=== PATIENT | female | born 1985 | race American Indian/Alaskan Native ===

== ENCOUNTER 2017-06-06 12:56 | Emergency (ER) | payer SELFPAY ==
[2017-06-06 14:39] LABS: Bacteria,Urine 1+ /HPF (Negative); Bilirubin,Urine NEG (Negative); Blood,Urine MOD (Negative); Ketones,Urine NEG (Negative); Leukocyte Esterase,Urine NEG (Negative); Mucus,Urine 2+ /HPF; Nitrite,Urine NEG (Negative); Protein,Urine <15 mg/dL mg/dL (Negative)
[2017-06-06 15:03] LABS: Hematocrit 36.2 % (30.3-42.9); Hemoglobin 11.6 gm/dl (10.1-14.3); Mean Corpuscular HGB Conc 32 % (30-34); Mean Corpuscular Hemoglobin 29 pg (28-32); Mean Corpuscular Volume 92 fl (79-97); Platelet Count 255 K/mm3 (140-440); Red Blood Count 3.93 M/mm3 (3.65-5.03); Red Cell Distribution Width 14.1 % (13.2-15.2); White Blood Count 10.2 K/mm3 (4.5-11.0)
[2017-06-06 15:17] LABS: Anion Gap 15 mmol/L; BUN/Creatinine Ratio 16.66; Blood Urea Nitrogen 5 mg/dL (7-17); Calcium 8.8 mg/dL (8.4-10.2); Carbon Dioxide 25 mmol/L (22-30); Chloride 102.9 mmol/L (98-107); Glucose 70 mg/dL (65-100); Potassium 4.1 mmol/L (3.6-5.0); Sodium 139 mmol/L (137-145)
--- NOTE | 2017-06-06 17:34 | Ultrasound Report ---
FINAL REPORT PROCEDURE: US OB \T\lt; = 14 WEEKS FETUS TECHNIQUE: Real-time transabdominal sonography of the uterus, placenta, amniotic fluid, adnexa, and fetus was performed with image documentation. Measurements were obtained to determine age/size. M-mode Doppler was used to document heartbeat. CPT 33787 HISTORY: vaginal bleed with COMPARISON: Transvaginal pelvic ultrasound also performed today. FINDINGS: This report was generated using images from both the transabdominal and transvaginal pelvic ultrasound both of which were performed today. A gestational sac is seen located in the endometrial canal. A pole is visualized measuring 3.2 millimeters corresponding to an age is 6 weeks 0 days. heartbeat and yolk sac are not visualized. No evidence of subchorionic hemorrhage. Shape of the gestational sac appears normal. Mildly hypoechoic mural masses consistent with fibroids are seen in the uterus located posteriorly, 1 near the fundus 4.0 x 3.4 x 4.0 centimeter. 2nd fibroid noted posteriorly in the midportion of the uterus measures 7 millimeters greatest diameter and a 3rd located in the lower uterine segment measures 1.4 x 1.4 x 2.0 centimeter. No free fluid is seen in the cul-de-sac. Right ovary is unremarkable measuring 2.9 x 1.5 x 2.4 centimeters. The left ovary is only visualized transabdominally measuring 3.3 x 1.9 x 1.9 centimeter. Hypoechoic nodules seen in the left ovary with internal echoes measuring 2.1 x 1.7 centimeters suggesting a corpus luteum cyst of . Mild internal echoes are present suggesting hemorrhage. IMPRESSION: Gestational sac visualized containing a pole. The yolk sac is not visualized. Heartbeat is not visualized at this time. The estimated age by crown-rump length measurement is [address] the EDC at 01/30/2018 plus or minus 0.5 weeks. It may be too early to visualize the heartbeat. Consider follow-up ultrasound in 7 days to evaluate for living intrauterine . Intrauterine demise cannot be excluded. I do not see evidence of a subchorionic hemorrhage on today's study per Small complex cystic structure visualized in the left ovary suggesting hemorrhagic corpus luteum cyst of . Uterine fibroids visualized as described above
--- NOTE | 2017-06-06 17:35 | Ultrasound Report ---
FINAL REPORT PROCEDURE: US OB TRANSVAGINAL TECHNIQUE: Real-time transvaginal sonography of the uterus, placenta, amniotic fluid, adnexa, and fetus was performed with image documentation. Measurements were obtained to determine age/size. M-mode Doppler was used to document heartbeat. CPT 33077 HISTORY: vaginal bleed with COMPARISON: Transabdominal OB ultrasound performed earlier today. FINDINGS: This report was generated using images from both the transabdominal and transvaginal pelvic ultrasound both of which were performed today. A gestational sac is seen located in the endometrial canal. A pole is visualized measuring 3.2 millimeters corresponding to an age is 6 weeks 0 days. heartbeat and yolk sac are not visualized. No evidence of subchorionic hemorrhage. Shape of the gestational sac appears normal. Mildly hypoechoic mural masses consistent with fibroids are seen in the uterus located posteriorly, 1 near the fundus 4.0 x 3.4 x 4.0 centimeter. 2nd fibroid noted posteriorly in the midportion of the uterus measures 7 millimeters greatest diameter and a 3rd located in the lower uterine segment measures 1.4 x 1.4 x 2.0 centimeter. No free fluid is seen in the cul-de-sac. Right ovary is unremarkable measuring 2.9 x 1.5 x 2.4 centimeters. The left ovary is only visualized transabdominally measuring 3.3 x 1.9 x 1.9 centimeter. Hypoechoic nodules seen in the left ovary with internal echoes measuring 2.1 x 1.7 centimeters suggesting a corpus luteum cyst of . Mild internal echoes are present suggesting hemorrhage. IMPRESSION: Gestational sac visualized containing a pole. The yolk sac is not visualized. Heartbeat is not visualized at this time. The estimated age by crown-rump length measurement is [address] the EDC at 01/30/2018 plus or minus 0.5 weeks. It may be too early to visualize the heartbeat. Consider follow-up ultrasound in 7 days to evaluate for living intrauterine . Intrauterine demise cannot be excluded. I do not see evidence of a subchorionic hemorrhage on today's study per Small complex cystic structure visualized in the left ovary suggesting hemorrhagic corpus luteum cyst of . Uterine fibroids visualized as described above
[2017-06-06 19:57] VITALS: BP 158/77
--- NOTE | 2017-06-06 21:06 | Emergency Department Report ---
HPI - General Chief Complaint: Abdominal Pain Time Seen by Provider: 06/06/17 20:56 - HPI HPI: Room 20 The patient is a 32-year-old female presented with a chief complaint of vaginal bleeding. The patient states she took a home test approximately 3 weeks ago and it was positive. The patient states she has not seen an INDUSTRIAL SERVICE TECHNICIAN for this yet. The patient states approximately one week ago she accidentally tripped over train tracks for. Patient denies loss of consciousness. The patient states approximately a days ago she developed vaginal spotting but today increased to vaginal bleeding. Patient admits to slight lower abdominal cramping. Patient denies other complaints and states she is ready to go home Location: [see above] Duration: [see above] Quality: Cramping Severity: Moderate Modifying factors: [see above] Context: [see above] Mode of transportation: Unknown ED Past Medical Hx - Past Medical History Previous Medical History?: No - Surgical History Hx Cholecystectomy: Yes Additional Surgical History: c- section 2007 - Family History Family history: no significant - Social History Smoking Status: Never Smoker Substance Use Type: None - Medications Home Medications: Home Medications Medication Instructions Recorded Confirmed Last Taken Type HYDROcodone/APAP 10-325 [[place] 1 each PO Q6HR PRN #14 tablet 03/31/14 Unknown Rx 10/325] Omeprazole [PriLOSEC] 20 mg PO QDAY #30 capsule. 03/31/14 Unknown Rx Ondansetron [Zofran Odt] 4 mg PO Q6H PRN #10 tab.rapdis 03/31/14 Unknown Rx ED Review of Systems ROS: Stated complaint: VAGINAL BLEEDING, Other details as noted in HPI Comment: All other systems reviewed and negative Constitutional: denies: chills, fever Eyes: denies: eye pain, eye discharge, vision change ENT: denies: ear pain, throat pain Respiratory: denies: cough, shortness of breath, wheezing Cardiovascular: denies: chest pain, palpitations Endocrine: no symptoms reported Gastrointestinal: abdominal pain Genitourinary: abnormal menses Musculoskeletal: denies: back pain, joint swelling, arthralgia Skin: denies: rash, lesions Neurological: denies: headache, weakness, paresthesias Psychiatric: denies: anxiety, depression Hematological/Lymphatic: denies: easy bleeding, easy bruising Physical Exam - Physical Exam Vital Signs: Vital Signs 06/06/17 06/06/17 14:12 19:56 Temperature 98.4 F 99.0 F Pulse Rate 97 H 88 Respiratory 20 18 Rate Blood Pressure 137/91 158/77 O2 Sat by Pulse 100 99 Oximetry Physical Exam: GENERAL: The patient is well-developed well-nourished female lying on stretcher not appearing to be in acute distress. [] HEENT: Normocephalic. Atraumatic. Extraocular motions are intact. Patient has moist mucous membranes. NECK: Supple. Trachea midline CHEST/LUNGS: Clear to auscultation. There is no respiratory distress noted. HEART/CARDIOVASCULAR: Regular. There is no tachycardia. There is no gallop rub or murmur. ABDOMEN: Abdomen is soft, nontender. Patient has normal bowel sounds. There is no abdominal distention. SKIN: There is no rash. There is no edema. There is no diaphoresis. NEURO: The patient is awake, alert, and oriented. The patient is cooperative. The patient has normal speech MUSCULOSKELETAL:There is no evidence of acute injury. ED Course Vital Signs 06/06/17 06/06/17 14:12 19:56 Temperature 98.4 F 99.0 F Pulse Rate 97 H 88 Respiratory 20 18 Rate Blood Pressure 137/91 158/77 O2 Sat by Pulse 100 99 Oximetry ED Medical Decision Making - Lab Data Result diagrams: 06/06/17 14:42 06/06/17 14:42 Laboratory Tests 06/06/17 06/06/17 06/06/17 14: 14:42 14:42 WBC 10.2 RBC 3.93 Hgb 11.6 Hct 36.2 MCV 92 MCH 29 MCHC 32 RDW 14.1 Plt Count 255 Sodium 139 Potassium 4.1 Chloride 102.9 Carbon Dioxide 25 Anion Gap 15 BUN 5 L Creatinine 0.3 L Estimated GFR > 60 BUN/Creatinine Ratio 16.66 Glucose 70 Calcium 8.8 HCG, Quant Urine Color Yellow Urine Turbidity Clear Urine pH 7.0 Ur Specific [place] 1.020 Urine Protein <15 mg/dl Urine Glucose (UA) Neg Urine Ketones Neg Urine Blood Mod Urine Nitrite Neg Urine Bilirubin Neg Urine Urobilinogen 2.0 Ur Leukocyte Esterase Neg Urine WBC (Auto) 1.0 Urine RBC (Auto) 10.0 U Epithel Cells (Auto) 1.0 Urine Bacteria (Auto) 1+ Urine Mucus 2+ Blood Type Antibody Screen 06/06/17 06/06/17 14:42 18:35 WBC RBC Hgb Hct MCV MCH MCHC RDW Plt Count Sodium Potassium Chloride Carbon Dioxide Anion Gap BUN Creatinine Estimated GFR BUN/Creatinine Ratio Glucose Calcium HCG, Quant 1927 H Urine Color Urine Turbidity Urine pH Ur Specific [place] Urine Protein Urine Glucose (UA) Urine Ketones Urine Blood Urine Nitrite Urine Bilirubin Urine Urobilinogen Ur Leukocyte Esterase Urine WBC (Auto) Urine RBC (Auto) U Epithel Cells (Auto) Urine Bacteria (Auto) Urine Mucus Blood Type B POSITIVE Antibody Screen Negative - Radiology Data Radiology results: report reviewed (pelvic ultrasound), image reviewed (pelvic ultrasound) Pelvic ultrasound (read by radiologist)-gestational sac visualized containing a pole. The yolk sac is not visualized. Heartbeat is not visualized at this time. Estimated age by crown-rump length measurement is 6 weeks. This we' ll place the EDC at 01/30/2018 plus or -0.5 weeks. It may be too early to visualize the heartbeat. Consider follow-up ultrasound in 7 days to evaluate for living intrauterine . Intrauterine demise cannot be excluded. A subchorionic hemorrhage on today's study - Differential Diagnosis spontaneous , threatened , incomplete , ectopic pre Critical care attestation.: If time is entered above; I have spent that time in minutes in the direct care of this critically ill patient, excluding procedure time. ED Disposition Clinical Impression: Threatened Disposition: [id number] TO HOME OR SELFCARE Is pt being admited?: No Does the pt Need Aspirin: No Condition: Stable Instructions: Abdominal Pain (ED), Threatened Miscarriage (ED) Additional Instructions: Return to the emergency department immediately should you develop worsening symptoms, fever, inability to tolerate food or liquid or any other concerns. Referrals: PRIMARY CAREMD [Primary Care Provider] - 3-5 Days NATALIIA ISAAC MD [Staff Physician] - [facility] (Dr. Isaac is an INDUSTRIAL SERVICE TECHNICIAN. Please follow with her for further evaluation) Time of Disposition: 21:03
== END 2017-06-06 22:32 | disposition home or self-care (01) ==
LOC: ED 12:56
DX: O20.0 Threatened abortion (principal); Z3A.01 Less than 8 weeks gestation of pregnancy
CPT/HCPCS: 36415; 76801; 76817; 80048; 81001; 84702; 85027; 86850; 86900; 86901

== ENCOUNTER 2018-11-22 09:45 | Inpatient (IN) | payer OTHER ==
[2018-11-22] MEDS ORDERED: COLACE PO PRN (10:34)
[2018-11-22] MEDS ORDERED: TYLENOL PO PRN (10:34)
[2018-11-22] MEDS ORDERED: CELESTONE SOLUSPAN IM SCH (11:00)
[2018-11-22 11:07] LABS: Basophils % (Auto) 0.4 % (0.0-1.8); Eosinophils # (Auto) 0.1 K/mm3 (0.0-0.4); Eosinophils % (Auto) 1.2 % (0.0-4.3); Hematocrit 33.8 % (30.3-42.9); Hemoglobin 11.4 gm/dl (10.1-14.3); Lymphocytes % (Auto) 19.9 % (13.4-35.0); Mean Corpuscular HGB Conc 34 % (30-34); Mean Corpuscular Volume 89 fl (79-97); Monocytes # (Auto) 0.8 K/mm3 (0.0-0.8); Monocytes % (Auto) 8.2 % (0.0-7.3); Platelet Count 255 K/mm3 (140-440); Red Cell Distribution Width 14.4 % (13.2-15.2)
[2018-11-22 11:22] LABS: Alanine Aminotransferase 8 units/L (7-56)
[2018-11-22 12:59] LABS: Bilirubin,Urine NEG (Negative); Blood,Urine NEG (Negative); Color,Urine Yellow (Yellow); Mucus,Urine FEW /HPF; Protein,Urine <15 mg/dL mg/dL (Negative); Urobilinogen,Urine < 2.0 mg/dL (<2.0); WBC,Urine < 1.0 /HPF (0.0-6.0)
--- NOTE | 2018-11-22 14:46 | History and Physical Report ---
History of Present Illness Date of admission: 11/22/18 12:54 History of present illness: 33yo at 32 6/7 weeks MIKE 01/11/19 transferred from [facility] due to elevated blood pressures 150/80s for evaluation of chronic hypertension superimposed preeclampsia. She has a history of morbid obesity BMI 57 and history of preeclampsia at 32 weeks with delivery. Her baseline blood pressures have been 130/80s until today. She denies headache, visual changes or RUQ pain. She was late to care at 14 weeks. She had a 24hr urine protein done 11/16 that was 287mg/24hr. Her PIH labs were within normal limits. Her has also been complicated by recurrent E. faecalis UTI. She has a history of 1 prior section. Past History Past Surgical History: section - Obstetrical History : 5 Number of Living Children: 1 Medications and Allergies Allergies Allergy/AdvReac Type Severity Reaction Status Date / Time No Known Allergies Allergy Verified 11/22/18 10:34 Home Medications Medication Instructions Recorded Confirmed Last Taken Type Aspirin [Aspirin BABY CHEW TAB] 81 mg PO QDAY 11/22/18 11/22/18 11/21/18 09:00 History Pnv No.95/Ferrous Fum/Folic AC 1 each PO DAILY 11/22/18 11/22/18 11/21/18 09:00 History [Prenavite Tablet] 1 Active Meds: Active Medications Acetaminophen (Tylenol) 650 mg PO Q4H PRN PRN Reason: Pain MILD(1-3)/Fever >100.5/[place] Betamethasone Acet/Betameth SodPhos ([place] Soluspan) 12 mg IM Q24HR VERO Stop: 11/23/18 10:01 Last Admin: 11/22/18 13:12 Dose: 12 mg Documented by: Docusate Sodium (Colace) 100 mg PO Q12H PRN PRN Reason: Constipation Multivitamins/Iron/Calcium ( Vitamin) 1 each PO QDAY VERO - Vital Signs Vital signs: Vital Signs Pulse BP 67 177/86 11/22/18 10:30 11/22/18 10:30 Temp Pulse Resp BP Pulse Ox 97.8 F 57 L 18 147/91 11/22/18 12:38 11/22/18 13:08 11/22/18 11:27 11/22/18 13:08 - Obstetrical FHR: category 1 Results Result Diagrams: 11/22/18 10:00 11/22/18 10:00 Abnormal lab results 11/22/18 11/22/18 Range/Units 10:00 10:00 [place] % (Auto) 8.2 H (0.0-7.3) % Seg Neutrophils % 70.3 H (40.0-70.0) % Creatinine 0.4 L (0.7-1.2) mg/dL Lactate Dehydrogenase 185 H (91-180) units/L All other labs normal. Assessment and Plan - Patient Problems (1) 32 weeks gestation of Current Visit: Yes Status: Acute (2) Gestational hypertension Current Visit: Yes Status: Acute Plan to address problem: 1. Betamethasone 12.5mg IM x2 Q24hrs due to history of delivery and preeclampsia at 32 weeks in light of new-onset gestational hypertension 2. Evaluate for preeclampsia (24hr urine protein, PIH labs). 3. Modified bedrest 4. Continue ASA 81mg 5. Continuous monitoring. 6. Labetolol 200mg PO BID, first dose now. (3) Morbid obesity with BMI of 50.0-59.9, adult Current Visit: Yes Status: Acute (4) Previous section Current Visit: Yes Status: Acute
[2018-11-22] MEDS ORDERED: APRESOLINE IV PRN (14:50)
[2018-11-22] MEDS: NORMODYNE PO SCH ×2 (15:28→21:53)
[2018-11-22] MEDS ORDERED: NORMODYNE IV PRN (15:37)
--- NOTE | 2018-11-23 09:33 | Progress Note ---
Assessment and Plan - Patient Problems (1) 32 weeks gestation of Current Visit: Yes Status: Acute Plan to address problem: Plan discharge home with f/u on Thursday with [facility] and [facility] for twice weekly BPP/NSTs, blood pressure monitoring. (2) Gestational hypertension Current Visit: Yes Status: Acute Plan to address problem: 1. BP well controlled on Labetolol 200mg PO BID. 2. Betamethasone 12.5mg IM x2 Q24hrs due to history of delivery and preeclampsia at 32 weeks in light of new-onset gestational hypertension 2. Evaluate for preeclampsia (24hr urine protein, PIH labs) - within normal limits. 3. Modified bedrest 4. Continue ASA 81mg 5. monitoring Q8hrs (3) Morbid obesity with BMI of 50.0-59.9, adult Current Visit: Yes Status: Acute (4) Previous section Current Visit: Yes Status: Acute Subjective - Subjective Interval history: 33yo at 32 6/7 weeks MIKE 01/11/19 transferred from [facility] due to elevated blood pressures 150/80s for evaluation of chronic hypertension superimposed preeclampsia. She has a history of morbid obesity BMI 57 and history of preeclampsia at 32 weeks with delivery. Her baseline blood pressures have been 130/80s until today. She denies headache, visual changes or RUQ pain. She was late to care at 14 weeks. She had a 24hr urine protein done 11/16 that was 287mg/24hr. Her PIH labs were within normal limits. Her has also been complicated by recurrent E. faecalis UTI. She has a history of 1 prior section. Objective - Vital Signs Vital Signs: Vital Signs - 12hr 11/22/18 11/22/18 11/22/18 21:45 21:47 21:53 Temperature 95.8 F L Pulse Rate 76 76 76 Respiratory 18 Rate Blood Pressure 142/81 142/81 Blood Pressure 142/81 [Left] 11/22/18 11/22/18 11/23/18 22:11 23:11 00:11 Temperature Pulse Rate 84 76 83 Respiratory Rate Blood Pressure 136/93 129/64 136/68 Blood Pressure [Left] 11/23/18 11/23/18 11/23/18 01:28 01:34 02:12 Temperature 96.9 F L Pulse Rate 75 75 76 Respiratory 18 Rate Blood Pressure 137/75 134/73 Blood Pressure 137/75 [Left] 11/23/18 11/23/18 11/23/18 03:11 04:12 05:11 Temperature Pulse Rate 84 85 81 Respiratory Rate Blood Pressure 133/66 134/63 140/75 Blood Pressure [Left] 11/23/18 08:17 Temperature 98.0 F Pulse Rate 71 Respiratory 18 Rate Blood Pressure 128/63 Blood Pressure 128/63 [Left] - Labs Labs: Abnormal Labs 11/22/18 11/22/18 10:00 10:00 [place] % (Auto) 8.2 H Seg Neutrophils % 70.3 H Creatinine 0.4 L Lactate Dehydrogenase 185 H Laboratory Results - last 24 hr 11/22/18 11/22/18 11/22/18 10:00 10:00 10:00 WBC 10.1 RBC 3.80 Hgb 11.4 Hct 33.8 MCV 89 MCH 30 MCHC 34 RDW 14.4 Plt Count 255 Lymph % (Auto) 19.9 [place] % (Auto) 8.2 H Eos % (Auto) 1.2 Baso % (Auto) 0.4 Lymph # 2.0 [place] # 0.8 Eos # 0.1 Baso # 0.0 Seg Neutrophils % 70.3 H Seg Neutrophils # 7.1 Creatinine 0.4 L Estimated GFR > 60 Uric Acid 4.0 AST 10 ALT 8 Lactate Dehydrogenase 185 H Urine Color Urine Turbidity Urine pH Ur Specific [place] Urine Protein Urine Glucose (UA) Urine Ketones Urine Blood Urine Nitrite Urine Bilirubin Urine Urobilinogen Ur Leukocyte Esterase Urine WBC (Auto) Urine RBC (Auto) U Epithel Cells (Auto) Urine Mucus Blood Type B POSITIVE Antibody Screen Negative 11/22/18 12:35 WBC RBC Hgb Hct MCV MCH MCHC RDW Plt Count Lymph % (Auto) [place] % (Auto) Eos % (Auto) Baso % (Auto) Lymph # [place] # Eos # Baso # Seg Neutrophils % Seg Neutrophils # Creatinine Estimated GFR Uric Acid AST ALT Lactate Dehydrogenase Urine Color Yellow Urine Turbidity Clear Urine pH 6.0 Ur Specific [place] 1.010 Urine Protein <15 mg/dl Urine Glucose (UA) Neg Urine Ketones Neg Urine Blood Neg Urine Nitrite Neg Urine Bilirubin Neg Urine Urobilinogen < 2.0 Ur Leukocyte Esterase Neg Urine WBC (Auto) < 1.0 Urine RBC (Auto) 1.0 U Epithel Cells (Auto) 1.0 Urine Mucus Few Blood Type Antibody Screen
[2018-11-23] MEDS: NORMODYNE PO SCH (09:52)
[2018-11-23] MEDS: PRENATAL VITAMIN PO SCH (09:52)
[2018-11-23] MEDS: BABY ASPIRIN PO SCH (09:53)
--- NOTE | 2018-11-23 11:12 | Progress Note ---
Assessment and Plan Chart reviewed. We agree with current plan for discharge home and follow-up with [facility] twice weekly. J Luis Subjective - Subjective Date of service: 11/23/18 Principal diagnosis: Rule out CHTN vs preeclampsia Interval history: Chart reviewed. we agree with current plan. Objective - Vital Signs Vital Signs: Vital Signs - 12hr 11/22/18 11/23/18 11/23/18 23:11 00:11 01:28 Temperature 96.9 F L Pulse Rate 76 83 75 Respiratory 18 Rate Blood Pressure 129/64 136/68 Blood Pressure 137/75 [Left] 11/23/18 11/23/18 11/23/18 01:34 02:12 03:11 Temperature Pulse Rate 75 76 84 Respiratory Rate Blood Pressure 137/75 134/73 133/66 Blood Pressure [Left] 11/23/18 11/23/18 11/23/18 04:12 05:11 08:17 Temperature 98.0 F Pulse Rate 85 81 71 Respiratory 18 Rate Blood Pressure 134/63 140/75 128/63 Blood Pressure 128/63 [Left] 11/23/18 11/23/18 11/23/18 09:52 10:03 11:03 Temperature Pulse Rate 71 71 68 Respiratory Rate Blood Pressure 128/63 144/76 150/78 Blood Pressure [Left] - Labs Labs: Abnormal Labs 11/22/18 11/22/18 10:00 10:00 [place] % (Auto) 8.2 H Seg Neutrophils % 70.3 H Creatinine 0.4 L Lactate Dehydrogenase 185 H Laboratory Results - last 24 hr 11/22/18 11/22/18 11/22/18 10:00 10:00 12:35 Creatinine 0.4 L Estimated GFR > 60 Uric Acid 4.0 AST 10 ALT 8 Lactate Dehydrogenase 185 H Urine Color Yellow Urine Turbidity Clear Urine pH 6.0 Ur Specific [place] 1.010 Urine Protein <15 mg/dl Urine Glucose (UA) Neg Urine Ketones Neg Urine Blood Neg Urine Nitrite Neg Urine Bilirubin Neg Urine Urobilinogen < 2.0 Ur Leukocyte Esterase Neg Urine WBC (Auto) < 1.0 Urine RBC (Auto) 1.0 U Epithel Cells (Auto) 1.0 Urine Mucus Few Blood Type B POSITIVE Antibody Screen Negative
[2018-11-23] MEDS: LANSINOH TP PRN (12:12)
[2018-11-23] MEDS ORDERED: CELESTONE SOLUSPAN IM ONE (14:00)
--- NOTE | 2018-11-23 19:40 | Event Note ---
Date: 11/23/18 Ob u/s showed - Wall, cephalic, VANESA 6.1, EFW 2210gms. Will cancel discharge tonight, IV hydration and repeat VANESA tomorrow.
[2018-11-23] MEDS ORDERED: LACTATED RINGERS 1,000 ML IV ONE (19:41)
--- NOTE | 2018-11-23 20:12 | Ultrasound Report ---
FINAL REPORT EXAM: US OB BPP WO NON-STRESS HISTORY: wellbeing TECHNIQUE: Biophysical profile obstetrical ultrasound PRIORS: Ultrasound pelvis 06/06/2017 FINDINGS: LMP 04/07/2018 clinical Age: 32 w 6 d LMP EDC 01/12/2019 Biophysical profile scoring 2 movement 2 tone 2 breathing 2 fluid 8/8 overall score Presentation: Cephalic Activity: Monitored Cardiac motion: 144 BPM using M-mode doppler Amniotic Fluid Volume: Adequate VANESA 6.1 cm (decreased) IMPRESSION: Single intrauterine viable with an approximate age of 32 weeks 6 days. Biophysical profile score is 8/8
--- NOTE | 2018-11-23 20:21 | Ultrasound Report ---
FINAL REPORT EXAM: US OB FOLLOW UP HISTORY: VANESA, EFW TECHNIQUE: Limited obstetrical ultrasound PRIORS: Ultrasound pelvis 06/06/2017 FINDINGS: LMP: 04/07/2018 clinical Age: 32 w 6 d US Age (average) = 33 W 5 D EFW (BPD,HC,AC,FL) = 2210 g +/- 327 g ( 4lbs 14 oz. +/- 12 oz.) LMP EDC 01/12/2019 US EDC 01/06/2019 CI 84.9 (range 74 to 83) HC/AC 1.04 (range 0.96 to 1.17) FL/BPD 76.3 (range 71.6 to 87.6) FL/HC 21.2 (range 16.9 to 23.5) FL/AC 22.0 (range 20 to 24) BPD 8.5 cm corresponding to age 34 weeks 1 day HC 30.5 cm corresponding to age 34 weeks 0 days AC 29.4 cm corresponding to age 33 weeks 3 days FL 6.5 cm corresponding to age 33 weeks 3 days Presentation: Cephalic Activity: Monitored Cardiac motion: 144 BPM using M-mode doppler Amniotic Fluid Volume: Adequate VANESA 6.1 cm (decreased) IMPRESSION: Single intrauterine viable with an approximate age of 32 weeks 6 days. VANESA is slightly dec reased.
--- NOTE | 2018-11-23 20:34 | Ultrasound Report ---
FINAL REPORT EXAM: US OB VELOCIMETRY UMBILCAL ART HISTORY: wellbeing TECHNIQUE: Real-time sonography was performed of the gravid uterus and images are submitted for inte rpretation. PRIORS: None. FINDINGS: There is a single fetus in the uterus in a cephalic presentation. Detailed anatomic survey was not pe rformed The amniotic fluid index is normal at 6.1 cm. The heart is beating at a rate of 144 beats per minute. Biometric measurements give an estimated gestational age of 33 weeks 5 days S/D ratio: 1. free loop: 2.3 2. free loop: 2.6 3. free loop: 2.9 S/D ratio average: 2.6 Diastolic flow is preserved RI: 1. free loop: 0.56 2. free loop: 0.6 3. free loop: 0.7 RI average: 0.62 Diastolic flow is preserved IMPRESSION: 1. Single, live intrauterine gestation, estimated gestational age 33 weeks 5 days for an estimated da te of confinement of 01/12/2019. 2. Normal umbilical cord duplex
[2018-11-23] MEDS: LACTATED RINGERS 1,000 ML IV SCH (23:36)
[2018-11-24] MEDS: LACTATED RINGERS 1,000 ML IV SCH ×2 (03:45→07:53)
--- NOTE | 2018-11-24 08:58 | Progress Note ---
Assessment and Plan - Patient Problems (1) 33 weeks gestation of Current Visit: Yes Status: Acute (2) HTN (hypertension) Current Visit: Yes Status: Acute Plan to address problem: Continue BP monitoring. Increase labetolol to 300 mg BID. (3) Morbid obesity with BMI of 50.0-59.9, adult Current Visit: Yes Status: Acute (4) Previous section Current Visit: Yes Status: Acute (5) Decreased amniotic fluid Current Visit: Yes Status: Acute Plan to address problem: Repeat VANESA today. Subjective - Subjective Date of service: 11/24/18 Principal diagnosis: SIUP at 33 weeks gestation with CHTN Interval history: Patient is a 33 year old who was admitted 2 days ago for elevated BP. She has a history of chronic HTN and has been co-managed with [facility]. Her toxemia labs were normal. Her 24-hr urine showed protein of 384. She has been on labetolol 200 mg BID. Her BP was stable since admission, but AM, it's been in the 150/80's. She denies any headache or visual changes. She denies any contractions, fluid leakage or bleeding. She reports good movement. Sono showed VANESA of 6. Objective - Vital Signs Vital Signs: Vital Signs - 12hr 11/24/18 11/24/18 02:54 07:56 Temperature 98.5 F Pulse Rate 62 59 L Respiratory 18 Rate Blood Pressure 159/86 159/84 Blood Pressure 159/84 [Left] - Exam Cardiovascular: Normal S1, Normal S2 Lungs: Clear to auscultation Vulva: both: normal FHR: category 1 Uterine Contraction Monitor Mode: External Cervical Dilatation: 0 Uterine Contraction Pattern: Absent Deep Tendon Reflex Grade: Normal +2 - Labs Labs: Abnormal Labs 11/22/18 11/22/18 11/23/18 10:00 10:00 12:14 [place] % (Auto) 8.2 H Seg Neutrophils % 70.3 H Creatinine 0.4 L Lactate Dehydrogenase 185 H Ur Total Protein 24 Hr 382.50 H Urine Total Protein 17 H Laboratory Results - last 24 hr 11/23/18 12:14 Urine Total Volume 2250 Ur Total Protein 24 Hr 382.50 H Urine Total Protein 17 H - Results US- obstetric: report reviewed
[2018-11-24] MEDS: NORMODYNE PO SCH (09:25)
[2018-11-24] MEDS: BABY ASPIRIN PO SCH (09:26)
[2018-11-24] MEDS: PRENATAL VITAMIN PO SCH (09:26)
[2018-11-24] MEDS: LANSINOH TP PRN (09:26)
--- NOTE | 2018-11-24 10:16 | Ultrasound Report ---
ULTRASOUND OB LIMITED History: Repeat VANESA Technique: Transabdominal ultrasound with Doppler interrogation. Gestation: Single Position: Cephalic Amniotic Fluid: Normal VANESA = 9.3 cm Heart Rate: 137 BPM
[2018-11-24 13:44] LABS: Hematocrit 31.5 % (30.3-42.9); Hemoglobin 10.5 gm/dl (10.1-14.3); Mean Corpuscular HGB Conc 33 % (30-34); Mean Corpuscular Volume 89 fl (79-97); Platelet Count 252 K/mm3 (140-440); Red Blood Count 3.52 M/mm3 (3.65-5.03); Red Cell Distribution Width 14.6 % (13.2-15.2)
[2018-11-24 14:02] LABS: Alanine Aminotransferase 8 units/L (7-56); Uric Acid 3.5 mg/dL (3.5-7.6)
[2018-11-24 18:08] VITALS: BP 160/87
--- NOTE | 2018-11-24 18:24 | Discharge Summary ---
Providers - Providers Date of Admission: 11/24/18 14:37 Date of discharge: 11/24/18 Attending physician: MOHAN SCHULTZ Primary care physician: MOHAN SCHULTZ Hospitalization Reason for admission: IUP - , other (IUP @ 33 weeks; Chronic Hypertension; Suspected preeclampsia) Other procedures: none complications: none Discharge diagnosis: other (IUP @ 33 weeks; Chronic hypertension; Oligohydramnios - resolved) Hospital course: Patient is a 33 year old black female who was admitted 2 days ago for elevated BP's. She has a history of chronic HTN and has been co-managed with [facility]. Her toxemia labs were normal. Her 24-hr urine showed protein of 384. She has been on labetolol 200 mg BID. Her BP was stable since admission, but this AM, it's been in the 150/80's. She denies any headache or visual changes. She denies any contractions, fluid leakage or bleeding. She reports good movement. Sono showed VANESA of 6. She received IV hydration and repeat VANESA today is 9.3 She will therefore be discharged to home on bedrest and follow up in the office in 2 days. Condition at discharge: Good Disposition: DC-01 TO HOME OR SELFCARE - Discharge Diagnoses (1) 33 weeks gestation of Status: Acute (2) Decreased amniotic fluid Status: Resolved Qualifiers: Fetus number: single or unspecified fetus Trimester: third trimester Qualified Code(s): O41.03X0 - Oligohydramnios, third trimester, not applicable or unspecified (3) Gestational hypertension Status: Acute Qualifiers: Trimester: third trimester Qualified Code(s): O13.3 - Gestational [-induced] hypertension without significant proteinuria, third trimester (4) Morbid obesity with BMI of 50.0-59.9, adult Status: Chronic Plan - Discharge Medications Prescriptions: Labetalol [Normodyne TAB] 200 mg PO BID 30 Days #60 tablet - Provider Discharge Summary Activity: routine, no sex for 6 weeks, no heavy lifting 4 weeks, no strenuous exercise, other (bedrest) Diet: routine Instructions: routine Additional instructions: [] Smoking cessation referral if applicable(refer to patient education folder for contact #) [] Refer to [facility]'s [facility] Booklet Call your doctor immediately for: * Fever > 100.5 * Heavy vaginal bleeding ( >1 pad per hour) * Severe persistent headache * Shortness of breath * Reddened, hot, painful area to leg or breast * Drainage or odor from incision. * Keep incision clean and dry at all times and follow doctor's instructions regarding bathing/showering Bedrest - Follow up plan Follow up: MOHAN SCHULTZ [Primary Care Provider] - 3 Days
== END 2018-11-24 19:15 | disposition home or self-care (01) | DRG 781 ==
LOC: TRG 09:45 → LD 12:54 → OBSVTOIN 11-24 14:37
PROVIDERS: ADMIT Obstetrics & Gynecology; ATTEND Obstetrics & Gynecology
DX: O11.3 Pre-existing hypertension with pre-eclampsia, third trimester (principal); E66.01 Morbid (severe) obesity due to excess calories; O41.03X0 Oligohydramnios, third trimester, not applicable or unspecified; O99.213 Obesity complicating pregnancy, third trimester; O10.013 Pre-existing essential hypertension complicating pregnancy, third trimester; Z3A.32 32 weeks gestation of pregnancy
CPT/HCPCS: 36415; 76815; 76816; 76819; 76820; 81001; 82565; 83615; 84156; 84450; 84460; 84550; 85025; 85027; 86850; 86900; 86901; G0378; A6250; J0702; J7120

== ENCOUNTER 2018-11-28 11:51 | Inpatient (IN) | payer OTHER ==
[2018-11-28] MEDS ORDERED: LACTATED RINGERS 500 ML IV ONE (12:19)
[2018-11-28] MEDS ORDERED: APRESOLINE IV ONE (13:04)
--- NOTE | 2018-11-28 13:27 | History and Physical Report ---
History of Present Illness Date of examination: 11/28/18 Date of admission: 11/28/2018 Chief complaint: Headache, swelling History of present illness: 33 year old presents to L&D with complaint of swelling in her hands, feet, and face, headache, and decreased movement today. Patient denies leaking of fluid or vaginal bleeding or abdominal pain. Patient denies abdominal pain or nausea or vomiting. Patient has received care at [facility] and also sees [facility]. records are available. LMP 04/22/18. EDC 01/11/19. 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 labs are as follows: B+, antibody screen negative, pap negative/+ HR HPV, rubella immune, RPR nonreactive, hepatitis B surface antigen positive, HIV negative, hemoglobin electrophoresis AA, GC negative, CT negative, trichomonas negative, quad screen negative, diabetes screen 111 and 123 on repeat, GBS unknown (not done yet). Past History Past Medical History: other (class 3 obesity; history of severe preeclampsia with a previous ) Past Surgical History: section [facility] History: chlamydia (treated and cured in the past), other (HR HPV on pap). denies: gonorrhea, hepatitis B, hepatitis C, herpes, HIV, syphilis, trichomonas Family/Genetic History: diabetes, heart disease, hypertension, other (thyroid disease) Social history: lives with family, full code. denies: smoking, alcohol abuse, prescription drug abuse, IV drug use - Obstetrical History Expected Date of Delivery: 01/11/19 Actual Gestation: 33 Week(s) 5 Day(s) : 5 Para: 1 Hx # Term Pregnancies: 0 Number of Pregnancies: 1 Spontaneous Abortions: 2 Induced : 1 Number of Living Children: 1 Medications and Allergies Allergies Allergy/AdvReac Type Severity Reaction Status Date / Time No Known Allergies Allergy Verified 11/28/18 12:16 Home Medications Medication Instructions Recorded Confirmed Last Taken Type Aspirin [Aspirin BABY CHEW TAB] 81 mg PO QDAY 11/22/18 11/28/18 11/28/18 09:00 History Labetalol [Normodyne TAB] 200 mg PO BID 30 Days #60 tablet 11/22/18 11/28/18 11/28/18 09:00 Rx Pnv No.95/Ferrous Fum/Folic AC 1 each PO DAILY 11/22/18 11/28/18 11/28/18 09:00 History [Prenavite Tablet] Active Meds: Active Medications Lactated Ringer's (Lactated Ringers) 1,000 mls @ 125 mls/hr IV DIRECT VERO Magnesium Sulfate (Magnesium Sulfate 40gm/1000ml) 40 gm in 1,000 mls @ 50 mls/hr IV DIRECT VERO Magnesium Sulfate (Magnesium Sulfate 4gm/100ml) 4 gm in 100 mls @ 300 mls/hr IV ONCE ONE Stop: 11/28/18 14:19 Labetalol HCl (Normodyne) 200 mg PO BID VERO Review of Systems All systems: negative (headache and generalized edema) - Vital Signs Vital signs: Vital Signs Pulse BP 59 L 211/104 11/28/18 12:26 11/28/18 12:26 Temp Pulse Resp BP Pulse Ox 60 188/84 11/28/18 13:09 11/28/18 13:09 - Physical Exam Cardiovascular: Regular rate, Normal S1, Normal S2 Lungs: Positive: Clear to auscultation Abdomen: Positive: normal appearance, soft. Negative: distention, tenderness, guarding, rigidity Uterus: Positive: enlarged (S=D) Extremities: Positive: normal, edema (moderate edema of hands, face, and BLE). Negative: tenderness - Obstetrical FHR: category 1 Uterine Contraction Monitor Mode: External Uterine Contraction Pattern: Absent Results All other labs normal. Assessment and Plan A: at 33 weeks, 5 days gestation. Severe preeclampsia. Class 3 obesity. Headache. History of previous section. 6 cm posterior uterine fibroid. P: Admit. Continuous EFM. Preeclamptic labs. IV Hydralazine. PO Labetalol. Magnesium Sulfate. US for BPP, VANESA. Serial BPs. Consulted with Dr. Isaac re: this patient due to severe preeclampsia.
[2018-11-28 13:43] LABS: Hematocrit 36.2 % (30.3-42.9); Mean Corpuscular HGB Conc 33 % (30-34); Mean Corpuscular Volume 90 fl (79-97); Platelet Count 240 K/mm3 (140-440); Red Blood Count 4.02 M/mm3 (3.65-5.03); Red Cell Distribution Width 15.1 % (13.2-15.2)
[2018-11-28 13:55] LABS: Alanine Aminotransferase 13 units/L (7-56); Albumin 3.1 g/dL (3.9-5); BUN/Creatinine Ratio 17; Blood Urea Nitrogen 5 mg/dL (7-17); Calcium 8.6 mg/dL (8.4-10.2); Hemolysis Index 2; Uric Acid 4.4 mg/dL (3.5-7.6)
[2018-11-28] MEDS ORDERED: LACTATED RINGERS 1,000 ML IV SCH ×2 (14:00→15:00)
[2018-11-28] MEDS ORDERED: MAGNESIUM SULFATE 4GM/100ML 4 GM/100 ML BAG IV ONE (14:00)
[2018-11-28] MEDS ORDERED: BICITRA PO ONE (14:58)
[2018-11-28] MEDS ORDERED: REGLAN IV ONE (14:58)
[2018-11-28] MEDS ORDERED: REGLAN ONE (14:58)
[2018-11-28] MEDS ORDERED: ANCEF/STERILE WATER 2 GM/20 ML 2 GM/20 ML SYRINGE IV ONE (14:58)
[2018-11-28] MEDS ORDERED: BICITRA ONE (14:58)
[2018-11-28] MEDS ORDERED: PEPCID IV ONE ×2 (14:58)
[2018-11-28] MEDS ORDERED: ANCEF/STERILE WATER 2 GM/20 ML 2 GM/20 ML SYRINGE IV NR (15:00)
[2018-11-28] MEDS ORDERED: PITOCin/NS 20 UNIT/1000ML DRIP 20 UNITS/1,000 ML BAG IV SCH (15:00)
--- NOTE | 2018-11-28 15:24 | Ultrasound Report ---
PROCEDURE: US OB BPP WO NON-STRESS TECHNIQUE: biophysical profile performed. HISTORY: Decreased movement COMPARISON: None FINDINGS: There is a single live intrauterine of approximately 33 weeks 4 days and corresponding MIKE of 04/07/2018. position is cephalic. cardiac activity measured 149 bpm Amniotic fluid volume is normal.. VANESA is 6.5 cm. Biophysical profile tone: 2 movement: 0 Amniotic fluid: 2 breathin Biophysical profile score:6 out of 8 IMPRESSION: Biophysical profile score 6 out of 8. No significant movement observed during 30 mi nutes of scanning. This document is electronically signed by Lillie Alba MD., November 28 2018 03:22:10 PM ET
--- NOTE | 2018-11-28 15:33 | Ultrasound Report ---
PROCEDURE: US OB LIMITED TECHNIQUE: Limited obstetrical ultrasound performed. HISTORY: VANESA COMPARISON: None FINDINGS: There is a single live intrauterine of approximately 33 weeks 4 days according to provided MIKE of 01/12/2019 There is a single live intrauterine . position is cephalic. Amniotic fluid volume is low normal, 6.5 cm. cardiac activity is demonstrated at 149 bpm. IMPRESSION: Single live third trimester intrauterine . Low-normal amniotic fluid volume, VANESA 6.5 cm. This document is electronically signed by Lillie Alba MD., November 28 2018 03:30:48 PM ET
--- NOTE | 2018-11-28 15:55 | Ultrasound Report ---
PROCEDURE: US OB VELOCIMETRY UMBILCAL ART HISTORY: well being FINDINGS: Real-time ultrasound of the pelvis was performed with attention to the gravid uterus. Umbilical artery S/D ratio was 2.67 which is normal. Umbilical artery resistive index is 0.62 which is in the low range of normal. cardiac activity was is present at 149 bpm. Amniotic fluid index was 6.5 cm, which is in the low range of normal. Impression: Umbilical artery S/D ratio is within normal limits This document is electronically signed by Adams Barajas MD., November 28 2018 03:52:56 PM ET
[2018-11-28] MEDS: MAGNESIUM SULFATE 40GM/1000ML 40 GM/1,000 ML BAG IV SCH ×2 (16:14→22:21)
[2018-11-28] MEDS ORDERED: NACL 0.9% IR ONE (19:15)
[2018-11-28] MEDS ORDERED: WATER FOR IRRIG STERILE IR ONE (19:15)
[2018-11-28] MEDS ORDERED: DIPRIVAN 10 MG/ML IV ONE (19:58)
[2018-11-28] MEDS: PITOCin/NS 20 UNIT/1000ML DRIP 20 UNITS/1,000 ML BAG IV SCH ×2 (20:00→22:22)
[2018-11-28] MEDS ORDERED: DILAUDID ONE (20:09)
[2018-11-28] MEDS ORDERED: XYLOCAINE MPF 2% ONE (20:31)
[2018-11-28] MEDS ORDERED: NEO SYNEPHRINE/NS Syringe(OR USE) IV ONE (20:31)
[2018-11-28] MEDS ORDERED: NARCAN 0.4 MG/1 ML IV PRN ×2 (20:35→21:03)
[2018-11-28] MEDS ORDERED: SENOKOT PO PRN (20:35)
[2018-11-28] MEDS ORDERED: MYLICON PO PRN (20:35)
[2018-11-28] MEDS ORDERED: TUCKS PAD TP PRN (20:35)
[2018-11-28] MEDS ORDERED: TYLENOL PO PRN (20:35)
[2018-11-28] MEDS ORDERED: ZOFRAN IV PRN ×2 (20:35→21:03)
[2018-11-28] MEDS ORDERED: LANSINOH TP PRN (20:35)
[2018-11-28] MEDS ORDERED: PHENERGAN PR PRN ×2 (20:35→21:03)
--- NOTE | 2018-11-28 20:43 | Operative Report ---
Operative Report Operative Report: Date of procedure: 11/28/2018 Pre-operative diagnosis: 1. Intrauterine at 33-5/7 weeks 2. Chroni c hypertension with superimposed pre-eclampsia 3. Morbid obesity 4. Previous 5. Uterine fibroids Post-operative diagnosis: Same Procedure name(s): Repeat low transverse section Surgeon: Roshan Isaac MD Industrial Design Intern: None Anesthesia: Spinal anesthesia by Dr. Acosta EBL: 800 mls Findings: An 1829 g female 7 at 1 minute 9 at 5 minutes. Clear amniotic fluid. Uterus with multiple fibroids including an 8 x 8 cm posterior fibroid. Normal tubes and ovaries bilaterally Procedure: After the patient was prepped and draped in usual sterile fashion, and after satisfactory level of epidural anesthesia was obtained, the skin knife was used to make a transverse skin incision through the previous skin scar. The incision was excised down to layer of the fascia, which was nicked in the midline and extended laterally using the Bovie cautery. The rectus muscles were dissected off the rectus fascia both superiorly and inferiorly. The rectus bellies in the midline, and the peritoneum was entered under direct visualization. The peritoneal incision was extended superiorly and inferiorly. A bladder flap was created and the bladder blade was then placed. The uterus was scored in a curvilinear linear fashion, entered in the midline revealing clear amniotic fluid. The infant's head was delivered onto the surgical field, and the oropharynx and nasopharynx were bulb suctioned. The rest of the 's body was delivered, cord was doubly clamped and cut and the was handed to the waiting respiratory team. The placenta was manually removed from the uterus, and the uterus removed from its normal anatomical position. The uterus had multiple fibroids including an 8 x 8 cm posterior fibroid. After gentle uterine lavage, the incision was inspected and found to be without extensions. It was then closed in 2 layers using 0 Vicryl suture in a running interlocking fashion, the second layer imbricating the first. After good hemostasis was achieved, copious amounts or irrigation was performed, and the gutters were suctioned free of blood and blood clots. The Tisseel sealant was sprayed across the uterine incision. The uterus was then returned to its normal anatomical position, and after excellent hemostasis assured, the peritoneum was re-approximated using 3-0 Vicryl suture in a running interlocking fashion, and then the rectus muscles were re-approximated using 3-0 Vicryl suture in a [id number] configuration. The fascia was then re-approximated using 0 Vicryl suture in running interlocking fashion. The subcutaneous layer was made hemostatic using Bovie cautery, the Tisseel sealant was sprayed across the fascial incision and the skin edges re-approximated using 4-0 Vicryl suture in a sub-cuticular fashion. Patient tolerated the procedure well was transported to recovery in stable condition.
[2018-11-28] MEDS ORDERED: D5LR 1,000 ML IV SCH (21:00)
[2018-11-28] MEDS ORDERED: SODIUM CHLORIDE FLUSH SYRINGE 10 ML IV PRN ×2 (21:00→22:00)
--- NOTE | 2018-11-28 21:02 | Anesthesia Consultation ---
Anesthesia Consult and Med Hx Date of service: 11/28/18 - Airway Anesthetic Teeth Evaluation: Good ROM Head & Neck: Adequate Mallampati Class: Class III Intubation Access Assessment: Possibly Difficult - Pre-Operative Health Status ASA Pre-Surgery Classification: ASA3 Proposed Anesthetic Plan: Epidural, Spinal - Pulmonary Hx Asthma: No COPD: No Hx Pneumonia: No - Cardiovascular System Hx Hypertension: Yes (PIH) - Central Nervous System Hx Seizures: No Hx Psychiatric Problems: No - Endocrine Hx Renal Disease: No Hx End Stage Renal Disease: No Hx Hypothyroidism: No Hx Hyperthyroidism: No - Hematic Hx Anemia: Yes Hx Sickle Cell Disease: No - Other Systems Hx Alcohol Use: Yes (occassionally) Hx Obesity: Yes (Morbid obesity 58.9)
[2018-11-28] MEDS ORDERED: DILAUDID IV PRN ×2 (21:03)
[2018-11-28] MEDS ORDERED: BENADRYL IV PRN (21:03)
[2018-11-28] MEDS ORDERED: PHENERGAN PO PRN (21:03)
--- NOTE | 2018-11-28 21:03 | Anesthesia Day of Surgery ---
Anesthesia Day of Surgery - Day of Surgery Patient Examined: Yes Patient H&P Reviewed: Yes Patient is NPO: Yes
[2018-11-28] MEDS: TORADOL IV PRN (21:35)
[2018-11-28] MEDS: NORMODYNE PO SCH (22:26)
[2018-11-28] MEDS ORDERED: ANCEF/NS 1 GM/50 ML 1 GM/50 ML BAG IV SCH (23:00)
[2018-11-29] MEDS: NORCO 5/325 PO PRN ×2 (01:07→19:47)
[2018-11-29] MEDS: PERCOCET 5/325 PO PRN ×3 (05:02→14:58)
[2018-11-29 07:59] LABS: Hematocrit 32.2 % (30.3-42.9)
--- NOTE | 2018-11-29 09:28 | Progress Note ---
Assessment and Plan - Patient Problems (1) S/P repeat low transverse Current Visit: Yes Status: Acute Plan to address problem: POD 1 - stable Continue routine postop orders Discontinue magnesium sulfate 24hr post delivery. If BPs stable, may transfer to . Ambulation, abdominal binder encouraged, as tolerated Anticipate discharge in 24 - 48 hrs (2) Chronic hypertension with superimposed pre-eclampsia Current Visit: Yes Status: Acute Plan to address problem: BPs stable Continue Labetalol 200mg PO BID Continue magnesium sulfate therapy. Continue strict I&Os, DTRs, serial magnesium level Subjective - Subjective Date of service: 11/29/18 Principal diagnosis: POD #1; s/p Repeat LTCS @ 33 wks; CHTN w/Superimposed Pre- eclampsia Interval history: see H&P and Operative Report Patient reports: pain well controlled, other (wood catheter in place. Denies headache, visual disturbances or RUQ pain), no flatus, no bowel movement : in NICU Objective - Vital Signs Latest vital signs: Vital Signs Temp Pulse Resp BP BP Pulse Ox 11/29/18 09:16 96 H 149/82 11/29/18 09:14 107 H 22 140/74 11/29/18 08:14 89 132/73 11/29/18 07:14 96 H 130/66 11/29/18 06:14 92 H 125/64 11/29/18 05:14 89 135/75 11/29/18 05:02 18 11/29/18 04:14 95 H 128/74 11/29/18 03:14 86 16 145/90 145/90 11/29/18 02:14 83 165/92 11/29/18 02:07 16 11/29/18 01:14 84 150/92 11/29/18 01:07 18 11/29/18 00:14 81 156/92 11/28/18 23:10 68 16 162/94 162/94 11/28/18 22:26 67 171/94 11/28/18 22:15 67 17 171/94 11/28/18 22:13 67 171/94 11/28/18 22:05 17 11/28/18 21:49 98.2 F 62 14 139/85 100 11/28/18 21:35 19 11/28/18 21:34 65 19 157/100 100 11/28/18 21:19 61 12 155/95 100 11/28/18 21:04 61 8 L 144/93 100 11/28/18 20:49 97.6 F 65 13 146/80 100 11/28/18 19:04 75 144/89 11/28/18 18:37 73 154/88 11/28/18 18:07 84 162/95 11/28/18 16:26 98.2 F 18 11/28/18 16:13 65 167/94 11/28/18 15:40 74 106/52 11/28/18 15:25 67 154/78 11/28/18 15:12 65 173/102 11/28/18 14:39 62 154/84 11/28/18 14:24 74 146/82 11/28/18 13:54 72 124/70 11/28/18 13:39 62 136/78 11/28/18 13:09 60 188/84 11/28/18 12:56 64 199/96 11/28/18 12:55 59 L 198/106 11/28/18 12:26 59 L 211/104 Intake and Output 11/28/18 11/29/18 11/29/18 23:59 07:59 15:59 Intake Total 2397.500 Output Total 300 400 Balance 2097.500 -400 Intake: IV 2397.500 MAGNESIUM SULFATE 40GM/ 305.833 1000ML 40 gm In 1,000 ml @ 2 GM/HR 50 mls/hr IV DIRECT VERO Rx#:[id number] PITOCin/NS 20 UNIT/1000ML 591.667 DRIP 20 units In 1,000 ml @ 250 mls/hr IV DIRECT VERO Rx#:[id number] Output: Urine 300 400 Indwelling Catheter 50 400 Other: Total, Output Amount 50 100 Estimated Blood Loss 800 - Exam Abdomen: Present: normal appearance, soft Uterus: Present: normal, firm, fundal height at umbilicus Extremities: Present: other (Sequential Compression Device in place) Incision: Present: normal, dressed (two blood-stained areas noted and marked. No evidence of active bleeding ) - Labs Labs: Abnormal lab results 11/28/18 11/28/18 Range/Units 13:07 13:26 WBC 12.4 H (4.5-11.0) K/mm3 Carbon Dioxide 21 L (22-30) mmol/L BUN 5 L (7-17) mg/dL Creatinine 0.3 L (0.7-1.2) mg/dL Lactate Dehydrogenase 220 H (91-180) units/L Albumin 3.1 L (3.9-5) g/dL
[2018-11-29] MEDS: PRENATAL VITAMIN PO SCH (09:57)
[2018-11-29] MEDS: NORMODYNE PO SCH ×2 (09:57→19:47)
[2018-11-29] MEDS: MAGNESIUM SULFATE 40GM/1000ML 40 GM/1,000 ML BAG IV SCH (13:19)
[2018-11-29] MEDS ORDERED: M-M-R II VACCINE SUB-Q ONE (20:37)
[2018-11-29] MEDS: TORADOL IV PRN (21:12)
[2018-11-30] MEDS: PERCOCET 5/325 PO PRN ×3 (03:17→15:58)
[2018-11-30] MEDS ORDERED: BOOSTRIX IM ONE (06:00)
[2018-11-30] MEDS: NORMODYNE PO SCH ×2 (09:41→20:08)
[2018-11-30] MEDS: PRENATAL VITAMIN PO SCH (09:43)
[2018-11-30] MEDS: FEOSOL PO SCH (09:44)
--- NOTE | 2018-11-30 10:51 | Progress Note ---
Assessment and Plan P: Continue current PP orders Place non-stick single dressing over steri-strips D/C tomorrow if B/P stable - Patient Problems (1) Chronic hypertension with superimposed pre-eclampsia Current Visit: Yes Status: Acute (2) S/P repeat low transverse Current Visit: Yes Status: Acute (3) Previous section Current Visit: No Status: Resolved (4) Morbid obesity with BMI of 50.0-59.9, adult Current Visit: No Status: Chronic Subjective - Subjective Date of service: 11/30/18 Principal diagnosis: POD #2; s/p Repeat LTCS @ 33 wks; CHTN w/Superimposed Pre- eclampsia Patient reports: appetite normal, voiding normally, pain well controlled, ambulating normally : in NICU, bottle feeding (also attempting to breast feed ) Objective - Vital Signs Latest vital signs: Vital Signs Temp Pulse Resp BP BP Pulse Ox 11/30/18 07:47 98.3 F 84 18 155/91 90 11/30/18 04:58 99.2 F 89 18 146/87 89 11/29/18 22:26 98.4 F 90 24 137/83 84 11/29/18 21:42 18 11/29/18 21:21 99 H 93 11/29/18 21:20 97 H 94 11/29/18 21:16 94 H 94 11/29/18 21:13 98 H 94 11/29/18 21:12 18 11/29/18 21:10 98 H 139/65 94 11/29/18 21:05 98 H 93 11/29/18 21:03 98 H 94 11/29/18 21:00 98 H 94 11/29/18 20:58 101 H 94 11/29/18 20:55 99 H 170/103 94 11/29/18 20:50 97 H 94 11/29/18 20:45 97 H 95 11/29/18 20:41 98 H 96 11/29/18 20:40 93 H 173/107 11/29/18 20:39 97 H 94 11/29/18 20:36 95 H 94 11/29/18 20:31 97 H 94 11/29/18 20:26 96 H 94 11/29/18 20:25 95 H 174/108 11/29/18 20:23 94 H 94 03/04/19 20:20 97 H 96 11/29/18 20:18 97 H 94 11/29/18 20:15 99 H 95 11/29/18 20:11 98 H 95 11/29/18 20:10 97 H 94 11/29/18 20:05 99 H 95 11/29/18 20:00 95 H 95 11/29/18 19:59 106 H 94 11/29/18 19:56 101 H 95 11/29/18 19:52 99 H 94 11/29/18 19:50 103 H 95 11/29/18 19:45 97 H 94 11/29/18 19:42 102 H 93 11/29/18 19:41 103 H 96 11/29/18 19:36 99 H 95 11/29/18 19:30 99 H 95 11/29/18 19:29 101 H 94 11/29/18 19:25 95 H 95 11/29/18 19:24 96 H 94 11/29/18 19:21 99 H 94 11/29/18 19:20 94 H 18 171/81 11/29/18 19:18 94 H 171/81 94 11/29/18 19:15 97 H 95 11/29/18 19:14 95 H 178/88 11/29/18 19:13 97 H 94 11/29/18 19:10 98 H 95 11/29/18 19:05 96 H 95 11/29/18 19:04 94 H 94 11/29/18 19:00 100 H 95 11/29/18 18:55 95 H 95 11/29/18 18:52 95 H 94 11/29/18 18:51 100 H 97 11/29/18 18:46 96 H 95 11/29/18 18:40 108 H 97 11/29/18 18:35 93 H 96 11/29/18 18:30 95 H 95 11/29/18 18:25 97 H 96 11/29/18 18:20 105 H 96 11/29/18 18:17 98 H 94 11/29/18 18:15 98 H 95 11/29/18 18:14 97 H 142/89 11/29/18 18:10 100 H 94 11/29/18 18:05 96 H 95 11/29/18 18:00 102 H 94 11/29/18 17:58 99 H 94 11/29/18 17:56 99 H 95 11/29/18 17:50 102 H 96 11/29/18 17:49 97 H 94 11/29/18 17:45 104 H 96 11/29/18 17:41 105 H 96 11/29/18 17:36 101 H 94 11/29/18 17:31 93 H 96 11/29/18 17:25 105 H 96 11/29/18 17:21 93 H 96 11/29/18 17:16 91 H 94 11/29/18 17:14 89 149/90 11/29/18 17:11 89 96 11/29/18 17:06 88 96 11/29/18 17:01 95 H 97 11/29/18 16:55 96 H 96 11/29/18 16:53 96 H 94 11/29/18 16:50 93 H 95 11/29/18 16:48 94 H 94 11/29/18 16:46 94 H 94 11/29/18 16:41 94 H 94 11/29/18 16:38 95 H 94 11/29/18 16:35 95 H 95 11/29/18 16:30 99 H 96 11/29/18 16:26 94 H 96 11/29/18 16:23 94 H 88 11/29/18 16:20 92 H 97 11/29/18 16:15 91 H 94 11/29/18 16:14 90 122/56 11/29/18 16:11 93 H 97 11/29/18 16:09 92 H 90 11/29/18 16:05 91 H 96 11/29/18 16:00 92 H 96 11/29/18 15:56 89 96 11/29/18 15:50 88 96 11/29/18 15:45 92 H 95 11/29/18 15:41 91 H 96 11/29/18 15:35 91 H 96 11/29/18 15:31 92 H 96 11/29/18 15:26 98 H 96 11/29/18 15:21 95 H 98 11/29/18 15:15 93 H 97 11/29/18 15:14 99 H 153/98 11/29/18 15:10 93 H 97 11/29/18 15:07 92 H 147/87 11/29/18 15:05 94 H 96 11/29/18 15:00 98 H 96 03/04/19 14:55 93 H 96 11/29/18 14:51 98 H 96 11/29/18 14:45 88 96 11/29/18 14:40 90 96 11/29/18 14:35 92 H 96 11/29/18 14:30 91 H 96 11/29/18 14:26 94 H 95 11/29/18 14:20 96 H 95 11/29/18 14:15 95 H 96 11/29/18 14:14 93 H 148/93 11/29/18 14:10 94 H 96 11/29/18 14:05 93 H 95 11/29/18 14:00 93 H 96 11/29/18 13:55 97 H 96 11/29/18 13:50 95 H 96 11/29/18 13:45 94 H 95 11/29/18 13:40 92 H 96 11/29/18 13:36 93 H 94 11/29/18 13:35 92 H 94 11/29/18 13:30 94 H 95 11/29/18 13:25 93 H 97 11/29/18 13:20 95 H 96 11/29/18 13:15 91 H 96 11/29/18 13:14 97 H 140/78 11/29/18 13:10 96 H 96 11/29/18 13:09 95 H 94 11/29/18 13:05 94 H 95 11/29/18 13:00 93 H 96 11/29/18 12:55 95 H 96 11/29/18 12:50 95 H 97 11/29/18 12:45 97 H 97 11/29/18 12:42 91 H 94 11/29/18 12:40 99 H 96 11/29/18 12:35 94 H 97 11/29/18 12:30 90 96 11/29/18 12:25 91 H 95 11/29/18 12:20 92 H 96 11/29/18 12:15 93 H 96 11/29/18 12:14 89 147/90 11/29/18 12:10 93 H 96 11/29/18 12:05 93 H 96 11/29/18 12:00 90 96 11/29/18 11:55 91 H 96 11/29/18 11:50 92 H 96 11/29/18 11:45 92 H 96 11/29/18 11:40 94 H 95 11/29/18 11:35 91 H 97 11/29/18 11:30 94 H 97 11/29/18 11:25 94 H 96 11/29/18 11:20 92 H 97 11/29/18 11:14 91 H 146/86 11/29/18 10:52 92 H 96 11/29/18 10:47 96 H 95 Intake and Output 11/29/18 11/30/18 11/30/18 23:59 07:59 15:59 Intake Total 600 960 Output Total 2200 1200 Balance -1600 -240 Intake: Oral 600 720 Intake, Free Water 240 Output: Urine 2200 1200 Indwelling Catheter 1400 Void 800 1200 Other: Total, Intake Amount 600 360 Total, Output Amount 800 600 - Exam Breasts: Present: normal Cardiovascular: Present: Regular rate, Normal S1, Normal S2 Lungs: Present: Clear to auscultation, Other (Respirations appear slightly labored) Abdomen: Present: tenderness, normal bowel sounds Uterus: Present: normal, firm, fundal height at umbilicus Extremities: Present: normal Deep Tendon Reflex Grade: Normal +2 Incision: Present: intact, other (removed dressing, healing as expected, no signs of infection. Steri-strips intact) - Labs Labs: Abnormal lab results 11/29/18 11/29/18 Range/Units 13:20 17:31 Magnesium 4.70 H 4.60 H (1.7-2.3) mg/dL
[2018-11-30] MEDS: NORCO 5/325 PO PRN (20:07)
[2018-11-30] MEDS: IBUPROFEN PO PRN (20:07)
[2018-11-30] MEDS: MILK OF MAGNESIA PO PRN (20:08)
[2018-12-01] MEDS: PERCOCET 5/325 PO PRN ×3 (03:20→21:31)
[2018-12-01] MEDS: IBUPROFEN PO PRN ×2 (09:29→18:41)
[2018-12-01] MEDS: PRENATAL VITAMIN PO SCH (09:30)
[2018-12-01] MEDS: NORMODYNE PO SCH ×2 (09:30→21:31)
[2018-12-01] MEDS: FEOSOL PO SCH (09:30)
--- NOTE | 2018-12-01 10:52 | Progress Note ---
Assessment and Plan - Patient Problems (1) Chronic hypertension with superimposed pre-eclampsia Onset Date: 12/01/18 Current Visit: Yes Status: Chronic (2) S/P repeat low transverse Onset Date: 12/01/18 Current Visit: Yes Status: Resolved Plan to address problem: A: S/P Repeat C Section - POD #3 Doing well Chronic hypertension - uncontrolled on Labetolol 300mg TID P: Will add Procardial XL 30mg QD Continue BP monitoring (3) Morbid obesity with BMI of 50.0-59.9, adult Onset Date: 12/01/18 Current Visit: No Status: Chronic Subjective - Subjective Date of service: 12/01/18 Principal diagnosis: POD #3; s/p Repeat LTCS @ 33 wks; CHTN w/Superimposed Pre- eclampsia Interval history: Pt is feeling well without complaints. She is tolerating a reg diet without nausea or vomiting, ambulating and voiding without difficulty. She denies headaches or blurred vision. BP still elevated 173/94 despite Labetolol 300mg TID Patient reports: appetite normal, voiding normally, pain well controlled, flatus, ambulating normally, no dizzy ambulation, no nauseated [place]: doing well, in NICU Objective - Vital Signs Latest vital signs: Vital Signs Temp Pulse Resp BP BP Pulse Ox 12/01/18 07:41 98.2 F 82 18 173/94 89 11/30/18 23:52 98.6 F 79 16 144/82 91 11/30/18 21:57 98.4 F 89 18 156/100 89 11/30/18 20:14 99.1 F 18 172/108 11/30/18 20:08 105 H 11/30/18 16:29 99.6 F 97 H 18 158/105 97 Intake and Output 11/30/18 12/01/18 12/01/18 22:59 06:59 14:59 Intake Total 780 200 480 Balance 780 200 480 Intake: Oral 480 200 480 Intake, Free Water 300 Other: Total, Intake Amount 480 200 480 - Exam Breasts: Present: deferred Abdomen: Present: normal appearance, soft Uterus: Present: normal, firm, fundal height below umbilicus Extremities: Present: normal Incision: Present: normal, dry, intact
[2018-12-01] MEDS: PROCARDIA XL PO SCH (12:33)
[2018-12-01] MEDS: MILK OF MAGNESIA PO PRN (21:31)
[2018-12-02] MEDS: IBUPROFEN PO PRN ×4 (03:39→23:12)
[2018-12-02] MEDS: PERCOCET 5/325 PO PRN ×4 (03:40→23:14)
[2018-12-02] MEDS: NORMODYNE PO SCH ×2 (08:24→23:09)
[2018-12-02] MEDS: PRENATAL VITAMIN PO SCH (09:09)
[2018-12-02] MEDS: PROCARDIA XL PO SCH (09:09)
[2018-12-02] MEDS: FEOSOL PO SCH (09:10)
--- NOTE | 2018-12-02 10:35 | Progress Note ---
Assessment and Plan - Patient Problems (1) Chronic hypertension with superimposed pre-eclampsia Onset Date: 12/01/18 Current Visit: Yes Status: Chronic Plan to address problem: Increase Labetolol 300mg PO BID to TID, start 1400 today. Continue Procardia 30mg XL daily. If unable to control BP will get hospitalist consult. Subjective - Subjective Principal diagnosis: POD #3; s/p Repeat LTCS @ 33 wks; CHTN w/Superimposed Pre- eclampsia Interval history: Denies chest pain or shortness of breath. The patient is down in NICU with her baby. She understands her BP need to be controlled before discharge. Objective - Vital Signs Vital Signs: Vital Signs - 12hr 12/02/18 12/02/18 12/02/18 01:00 03:45 08:24 Temperature 98.6 F Pulse Rate 88 93 H Respiratory 18 Rate Blood Pressure 151/97 Blood Pressure 143/93 136/84 [Left] O2 Sat by Pulse 97 Oximetry 12/02/18 12/02/18 08:25 10:10 Temperature 98.6 F Pulse Rate 93 H 88 Respiratory Rate Blood Pressure Blood Pressure 151/97 133/88 [Left] O2 Sat by Pulse Oximetry - Labs Labs: Abnormal Labs 11/28/18 11/28/18 11/29/18 13:07 13:26 13:20 WBC 12.4 H Carbon Dioxide 21 L BUN 5 L Creatinine 0.3 L Magnesium 4.70 H Lactate Dehydrogenase 220 H Albumin 3.1 L 11/29/18 17:31 WBC Carbon Dioxide BUN Creatinine Magnesium 4.60 H Lactate Dehydrogenase Albumin
[2018-12-02] MEDS ORDERED: NORMODYNE PO SCH (11:30)
[2018-12-02] MEDS ORDERED: NORMODYNE PO ONE (18:40)
[2018-12-03] MEDS: PRENATAL VITAMIN PO SCH (08:30)
[2018-12-03] MEDS: NORMODYNE PO SCH ×3 (08:30→20:02)
[2018-12-03] MEDS: PROCARDIA XL PO SCH (08:30)
[2018-12-03] MEDS: FEOSOL PO SCH ×2 (08:30→12:34)
[2018-12-03] MEDS: PERCOCET 5/325 PO PRN (08:55)
[2018-12-03] MEDS ORDERED: PROCARDIA XL PO ONE (12:00)
--- NOTE | 2018-12-03 17:09 | Event Note ---
POD#4 Chronic hypertension superimposed preeclampsia. Patient's blood pressures uncontrolled despite Procardia 60mg XL and Labetolol 300mg PO TID. Request consult from hospitalist. MD requests manual blood pressure be taken. Order placed and communicated to patient's nurseRoro.
[2018-12-03 20:03] VITALS: BP 142/86
--- NOTE | 2018-12-07 09:12 | Discharge Summary ---
Providers - Providers Date of Admission: 11/28/18 14:55 Attending physician: MICHEL PECK MD Primary care physician: MOHAN SCHULTZ Hospitalization Condition: Stable Procedures: Pre-operative diagnosis: 1. Intrauterine at 33-5/7 weeks 2. Chronic hypertension with superimposed pre-eclampsia 3. Morbid obesity 4. Previous 5. Uterine fibroids Post-operative diagnosis: Same Procedure name(s): Repeat low transverse section Surgeon: Roshan Isaac MD Coil Builder: None Anesthesia: Spinal anesthesia by Dr. Acosta EBL: 800 mls Findings: An 1829 g female 7 at 1 minute 9 at 5 minutes. Clear amniotic fluid. Uterus with multiple fibroids including an 8 x 8 cm posterior fibroid. Normal tubes and ovaries bilaterally Hospital course: Admission for Chronic hypertension with superimposed Preeclampsia, and this time she is symptomatic with headaches and BP 210/104 uncontrolled with IV Hydralazine, BPP 6/10 and VANESA 6.5 and she has already received steroids on 11/24/18 we will proceed with her Repeat C Section due to severe Preeclampsia. Difficult to control blood pressures discharged with Labetolol and Procardia. Disposition: DC- TO HOME OR SELFCARE - Discharge Diagnoses (1) Chronic hypertension with superimposed pre-eclampsia Status: Chronic Core Measure Documentation - Palliative Care Palliative Care/ Comfort Measures: Not Applicable - Core Measures Any of the following diagnoses?: none Exam - Constitutional Vitals: Temp Pulse Resp BP Pulse Ox 100.2 F H 94 H 22 142/86 93 12/03/18 16:27 12/03/18 20:02 12/03/18 20:01 12/03/18 20:02 12/03/18 16:27 Plan Activity: other (nothing per vagina. No heavy lifting. No exercise. ) Follow up with: MOHAN SCHULTZ MD [Primary Care Provider] - 7 Days Forms: [facility] Discharge Summary, Discharge Signature Page Prescriptions: Ferrous Sulfate [Feosol 325 MG tab] 325 mg PO BID #60 tablet Ibuprofen [Motrin] 800 mg PO Q8HR PRN #30 tablet PRN Reason: Pain, Mild (1-3) HYDROcodone/APAP 5-325 [[place] 5/325] 1 each PO Q6HR PRN #30 tablet PRN Reason: Pain Labetalol [Normodyne TAB] 300 mg PO Q8HR 30 Days #90 tablet Pnv No.95/Ferrous Fum/Folic AC [Prenavite Tablet] 1 each PO DAILY #30 tablet NIFEdipine XL [Procardia Xl] 60 mg PO QDAY 30 Days #30 tablet
== END 2018-12-03 20:45 | disposition home or self-care (01) | DRG 766 ==
LOC: TRG 11:51 → LD 14:55 → OB 11-29 22:06
PROVIDERS: ADMIT Obstetrics & Gynecology; ATTEND Obstetrics & Gynecology
PROC: 10D00Z1 Extraction of Products of Conception, Low, Open Approach (ICD-10-PCS; principal; 2018-11-28)
PROC: 3E0134Z Introduction of Serum, Toxoid and Vaccine into Subcutaneous Tissue, Percutaneous Approach (ICD-10-PCS; 2018-11-29)
PROC: 3E0234Z Introduction of Serum, Toxoid and Vaccine into Muscle, Percutaneous Approach (ICD-10-PCS; 2018-11-30)
DX: O11.4 Pre-existing hypertension with pre-eclampsia, complicating childbirth (principal); O75.89 Other specified complications of labor and delivery; O34.211 Maternal care for low transverse scar from previous cesarean delivery; O34.13 Maternal care for benign tumor of corpus uteri, third trimester; D25.9 Leiomyoma of uterus, unspecified; E66.01 Morbid (severe) obesity due to excess calories; O99.214 Obesity complicating childbirth; R51 Headache; O99.02 Anemia complicating childbirth; D64.9 Anemia, unspecified; Z23 Encounter for immunization; Z37.0 Single live birth; Z3A.33 33 weeks gestation of pregnancy; Z71.3 Dietary counseling and surveillance
CPT/HCPCS: 36415; 59025; 76815; 76819; 76820; 80053; 83615; 83735; 84550; 85014; 85018; 85027; 86592; 86850; 86900; 86901; 88307; 90707; 96374; G0378; C9250; J0360; J0690; J1170; J1885; J2370; J2590; J2704; J2765; J3475; J7120; J7121

== ENCOUNTER 2020-01-09 12:27 | Inpatient (IN) | payer OTHER, SELFPAY ==
--- NOTE | 2020-01-09 12:42 | Event Note ---
ED Screening Note Date of service: 01/09/20 Time: 12:39 ED Screening Note: 34 y/o female comes in for sob 2 day and has gotten worst today. Body aches. No fevers. This initial assessment/diagnostic orders/clinical plan/treatment(s) is/are subject to change based on patients health status, clinical progression and re- assessment by fellow clinical providers in the ED. Further treatment and workup at subsequent clinical providers discretion. Patient/guardian urged not to elope from the ED as their condition may be serious if not clinically assessed and managed. Initial orders include: cbc, cmp cxr
[2020-01-09 13:12] LABS: HCG Qualitative,Urine Negative (Negative)
[2020-01-09 13:53] LABS: Basophils % (Auto) 0.5 % (0.0-1.8); Eosinophils % (Auto) 0.4 % (0.0-4.3); Hematocrit 37.8 % (30.3-42.9); Hemoglobin 12.2 gm/dl (10.1-14.3); Lymphocytes # (Auto) 1.4 K/mm3 (1.2-5.4); Lymphocytes % (Auto) 40.5 % (13.4-35.0); Mean Corpuscular HGB Conc 32 % (30-34); Mean Corpuscular Volume 87 fl (79-97); Monocytes # (Auto) 0.4 K/mm3 (0.0-0.8); Monocytes % (Auto) 10.2 % (0.0-7.3); Platelet Count 189 K/mm3 (140-440); Red Blood Count 4.33 M/mm3 (3.65-5.03)
--- NOTE | 2020-01-09 14:07 | XRay Report ---
CHEST 2 VIEWS INDICATION: sob,cough and rales. COMPARISON: None FINDINGS: Support devices: None. Heart: Within normal limits. Lungs/pleura: There is poor inspiration with mild hypoventilatory changes in the lower lobes. No con vincing pneumonia, pleural fluid or pneumothorax is identified. Additional findings: None. IMPRESSION: Negative expiratory chest x-ray. Signer Name: Roshan Coleman Jr, MD Signed: 01/09/2020 2:02 PM Workstation Name: [id number]
[2020-01-09 14:20] LABS: Alanine Aminotransferase 60 units/L (7-56); Albumin 4.1 g/dL (3.9-5); BUN/Creatinine Ratio 10; Blood Urea Nitrogen 5 mg/dL (7-17); Calcium 8.9 mg/dL (8.4-10.2); Hemolysis Index 9
--- NOTE | 2020-01-09 14:32 | Emergency Department Report ---
Minor Respiratory - HPI Chief Complaint: Upper Respiratory Infection Stated Complaint: FEVER/BODYACHE/ASAD Time Seen by Provider: 01/09/20 12:37 Duration: 3 Days Minor Respiratory: Yes Cough, Yes Shortness of Breath, No Rhinorrhea, No Sore Throat, No Able to Tolerate Fluids, No Ear Pain, No Sick Contacts, No Hemoptysis, No Chest Pain, No Fever Other History: 34-year-old -Stateless female that who is obese with a past medical history of hypertension during her pregnancies presents to the emergency room complaining of shortness of breath cough and body aches. Patient states is been going on for a few days. 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 ED Review of Systems ROS: Stated complaint: FEVER/BODYACHE/ASAD Other details as noted in HPI ED Past Medical Hx - Past Medical History Previous Medical History?: No Hx Hypertension: Yes (PIH) Hx Congestive Heart Failure: No Hx Diabetes: No Hx Deep Vein Thrombosis: No Hx Renal Disease: No Hx Sickle Cell Disease: No Hx Seizures: No Hx Asthma: No Hx COPD: No Hx HIV: No - Surgical History Past Surgical History?: Yes Hx Cholecystectomy: Yes Additional Surgical History: c- section 2007 - Social History Smoking Status: Never Smoker Substance Use Type: None - Medications Home Medications: Home Medications Medication Instructions Recorded Confirmed Last Taken Type Ferrous Sulfate [Feosol 325 MG tab] 325 mg PO BID #60 tablet 11/28/18 Unknown Rx Ibuprofen [Motrin 800 MG tab] 800 mg PO Q8HR PRN #30 tablet 11/28/18 Unknown Rx Hydroxychloroquine [Plaquenil] 200 mg PO Q12HR #8 tablet 01/10/20 Unknown Rx Minor Respiratory Exam - Exam General: Vital signs noted. No distress. Alert and acting appropriately. Neurologic: Alert and oriented, no deficits. Musculoskeletal: Unremarkable. ED Course Vital Signs 01/09/20 12:38 Temperature 98.9 F Pulse Rate 98 H Respiratory 20 Rate Blood Pressure 144/87 O2 Sat by Pulse 95 Oximetry ED Medical Decision Making - Lab Data Result diagrams: 01/10/20 04:59 01/10/20 04:59 - Radiology Data Radiology results: report reviewed Print Report Referring Physician:BRENDA GUEVARAPatient Name:DIANE BALBUENAAmita ALANIZPatient ID:[id number] of :[id number]: FemaleAccession:[id number] Date:[id number] Status:Finalized Findings [facility] [address] [place] [address] XRay Report Signed Patient: DIANE ALANIZ MR #: [id number] : 1985 Acct:[id number] Age/Sex: 34 / F ADM Date: 01/09/20 Loc: ED Attending Dr: Ordering Physician: JAVIER MENESES Date of Service: 01/09/20 Procedure(s): XR chest routine 2V Accession Number(s): [id number] cc: JAVIER MENESES Fluoro Time In Minutes: CHEST 2 VIEWS INDICATION: sob,cough and rales. COMPARISON: None FINDINGS: Support devices: None. Heart: Within normal limits. Lungs/pleura: There is poor inspiration with mild hypoventilatory changes in the lower lobes. No convincing pneumonia, pleural fluid or pneumothorax is identified. Additional findings: None. IMPRESSION: Negative expiratory chest x-ray. Signer Name: Roshan Coleman Jr, MD Signed: 01/09/2020 2:02 PM Workstation Name: [id number] Transcribed By: TTR Dictated By: ROSHAN COLEMAN JR, MD Electronically Authenticated By: ROSHAN COLEMAN JR, MD Signed Date/Time: 01/09/20 1402 - Medical Decision Making 34-year-old -Stateless female that who is obese with a past medical history of hypertension during her pregnancies presents to the emergency room complaining of shortness of breath cough and body aches. Patient states is been going on for a few days. 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 Chest x-ray ordered shows negative expiratory study. CMP shows mild elevation of her liver functions. 2-minute walk lasted 0.30 seconds with patient going less than 3 yards where she desatted to 88% on room air. Inform Dr. Nalini Prakash recommends a call to infectious disease place Covid-[address]. [address] Bartlett infectious disease provider who recommends to go ahead and send collect sample to be sent to [place]. Call sent out to Dr. Richey after speaking to Dr. Abbott concerned that patient d- dimer is greater than 4000 and wants clarification on Lovenox dosage. Spoke to Dr. Bartlett infectious disease provider he recommends Lovenox 40 mg daily if patient has a negative Wells criteria which she does. Discussed with Dr. Moralez hospitalist that patient has a negative Wells criteria recommend Lovenox 40 mg daily. This provider will be placing bridge orders isolation [facility]. Critical care attestation.: If time is entered above; I have spent that time in minutes in the direct care of this critically ill patient, excluding procedure time. ED Disposition Clinical Impression: Chronic hypertension with superimposed pre-eclampsia, Suspected 2019 novel coronavirus infection Disposition: OP ADMIT IP TO THIS HOSP Is pt being admited?: Yes Does the pt Need Aspirin: No Condition: Stable
[2020-01-09] MEDS ORDERED: IBUPROFEN 600 MG TAB PO ONE (14:33)
[2020-01-09] MEDS ORDERED: SODIUM CHLORIDE 0.9% 1000 ML 1,000 ML IV ONE (14:48)
[2020-01-09 15:43] LABS: C-Reactive Protein 1.1 mg/dL (0.00-1.30)
[2020-01-09] MEDS ORDERED: ONDANSETRON 4 MG/2 ML INJ IV PRN (20:24)
[2020-01-09] MEDS ORDERED: ACETAMINOPHEN 325 MG TAB PO PRN (20:24)
[2020-01-09] MEDS ORDERED: oxyCODONE /ACETAMINOPHEN 5-325MG TAB PO PRN (20:24)
[2020-01-09] MEDS ORDERED: MORPHINE 2 MG/1 ML INJ IV PRN (20:24)
--- NOTE | 2020-01-09 20:48 | History and Physical Report ---
History of Present Illness Date of examination: 01/09/20 Date of admission: 01/09/20 18:36 Chief complaint: Cough and shortness of breath for 4 days. History of present illness: 34-year-old female with history of -induced hypertension not on any blood pressure medications now comes in for cough and shortness of breath for the last 3 to 4 days. No chest pain or fever. Patient has been desaturating to high 80s on walking about 15-20 steps hence being admitted for rule out coronavirus infection. And also empiric treatment. 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 Past Medical History Previous Medical History?: No Hypertension: Yes (PIH) Surgical History Past Surgical History?: Yes Hx Cholecystectomy: Yes Additional Surgical History: c- section 2007 Social History Smoking Status: Never Smoker Substance Use Type: None Family history Htn - Medications Home Medications: Home Medications Medication Instructions Recorded Confirmed Last Taken Type Aspirin [Aspirin BABY CHEW TAB] 81 mg PO QDAY 11/22/18 11/28/18 11/28/18 09:00 History Pnv No.95/Ferrous Fum/Folic AC 1 each PO DAILY 11/22/18 11/28/18 11/28/18 09:00 History [Prenavite Tablet] Ferrous Sulfate [Feosol 325 MG tab] 325 mg PO BID #60 tablet 11/28/18 Unknown Rx HYDROcodone/APAP 5-325 [[place] 1 each PO Q6HR PRN #30 tablet 11/28/18 Unknown Rx 5/325] Ibuprofen [Motrin] 800 mg PO Q8HR PRN #30 tablet 11/28/18 Unknown Rx Pnv No.95/Ferrous Fum/Folic AC 1 each PO DAILY #30 tablet 11/28/18 Unknown Rx [Prenavite Tablet] NIFEdipine XL [Procardia Xl] 60 mg PO QDAY 30 Days #30 tablet 12/03/18 Unknown Rx labetaloL [Labetalol 200mg TAB] 300 mg PO Q8HR 30 Days #90 tablet 12/03/18 Unknown Rx Review of Systems Constitutional no weight loss or weight gain no fever or chills HEENT no sore throat no post nasal drip no diplopia Neck no neck stiffness no lymph gland enlargement Chest and lungs shortness of breath and cough present CVS no chest pain no diaphoresis no palpitations GI no nausea no vomiting no diarrhea Genitourinary system no dysuria no flank pain Musculoskeletal system no muscle pains no joint pains 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 Skin no rash no itching Psychiatric no depression no homicidal or suicidal tendencies Hematologic no lymphedema or bruising Endocrine no polydipsia no polyuria no cold intolerance no heat intolerance PUI?: Yes COVID19: Pending Medications and Allergies Allergies Allergy/AdvReac Type Severity Reaction Status Date / Time No Known Allergies Allergy Verified 11/28/18 12:16 Home Medications Medication Instructions Recorded Confirmed Last Taken Type Aspirin [Aspirin BABY CHEW TAB] 81 mg PO QDAY 11/22/18 11/28/18 11/28/18 09:00 History Pnv No.95/Ferrous Fum/Folic AC 1 each PO DAILY 11/22/18 11/28/18 11/28/18 09:00 History [Prenavite Tablet] Ferrous Sulfate [Feosol 325 MG tab] 325 mg PO BID #60 tablet 11/28/18 Unknown Rx HYDROcodone/APAP 5-325 [[place] 1 each PO Q6HR PRN #30 tablet 11/28/18 Unknown Rx 5/325] Ibuprofen [Motrin] 800 mg PO Q8HR PRN #30 tablet 11/28/18 Unknown Rx Pnv No.95/Ferrous Fum/Folic AC 1 each PO DAILY #30 tablet 11/28/18 Unknown Rx [Prenavite Tablet] NIFEdipine XL [Procardia Xl] 60 mg PO QDAY 30 Days #30 tablet 12/03/18 Unknown Rx labetaloL [Labetalol 200mg TAB] 300 mg PO Q8HR 30 Days #90 tablet 12/03/18 Unknown Rx Exam - Constitutional Vitals: Temp Pulse Resp BP Pulse Ox 98.9 F 98 H 18 144/87 95 01/09/20 12:38 01/09/20 12:38 01/09/20 15:41 01/09/20 12:38 01/09/20 12:38 General appearance: Present: no acute distress, well-nourished - EENT Eyes: Present: PERRL ENT: hearing intact, clear oral mucosa - Neck Neck: Present: supple, normal ROM - Respiratory Respiratory effort: normal Respiratory: bilateral: CTA - Cardiovascular Heart rate: 88 Rhythm: regular Heart Sounds: Present: S1 & S2. Absent: rub, click - Extremities Extremities: no ischemia, pulses intact, pulses symmetrical, No edema Peripheral Pulses: within normal limits - Abdominal General gastrointestinal: Present: soft, non-tender, non-distended, normal bowel sounds Female genitourinary: Present: normal - Integumentary Integumentary: Present: clear, warm, dry - Musculoskeletal Musculoskeletal: gait normal, strength equal bilaterally - Psychiatric Psychiatric: appropriate mood/affect, intact judgment & insight - Neurologic Neurologic: CNII-XII intact, moves all extremities - Allied Health Allied health notes reviewed: nursing, case management Results - Labs CBC & Chem 7: 01/09/20 13:41 01/09/20 13:41 Labs: Laboratory Last Values WBC 3.5 K/mm3 (4.5-11.0) L 01/09/20 13:41 RBC 4.33 M/mm3 (3.65-5.03) 01/09/20 13:41 Hgb 12.2 gm/dl (10.1-14.3) 01/09/20 13:41 Hct 37.8 % (30.3-42.9) 01/09/20 13:41 MCV 87 fl (79-97) 01/09/20 13:41 MCH 28 pg (28-32) 01/09/20 13:41 MCHC 32 % (30-34) 01/09/20 13:41 RDW 13.0 % (13.2-15.2) L 01/09/20 13:41 Plt Count 189 K/mm3 (140-440) 01/09/20 13:41 Lymph % (Auto) 40.5 % (13.4-35.0) H 01/09/20 13:41 Woods % (Auto) 10.2 % (0.0-7.3) H 01/09/20 13:41 Eos % (Auto) 0.4 % (0.0-4.3) 01/09/20 13:41 Baso % (Auto) 0.5 % (0.0-1.8) 01/09/20 13:41 Lymph # 1.4 K/mm3 (1.2-5.4) 01/09/20 13:41 Woods # 0.4 K/mm3 (0.0-0.8) 01/09/20 13:41 Eos # 0.0 K/mm3 (0.0-0.4) 01/09/20 13:41 Baso # 0.0 K/mm3 (0.0-0.1) 01/09/20 13:41 Seg Neutrophils % 48.4 % (40.0-70.0) 01/09/20 13:41 Seg Neutrophils # 1.7 K/mm3 (1.8-7.7) L 01/09/20 13:41 D-Dimer 4065.94 ng/mlDDU (0-234) H 01/09/20 14:59 Sodium 139 mmol/L (137-145) 01/09/20 13:41 Potassium 4.2 mmol/L (3.6-5.0) 01/09/20 13:41 Chloride 102.9 mmol/L (98-107) 01/09/20 13:41 Carbon Dioxide 26 mmol/L (22-30) 01/09/20 13:41 Anion Gap 14 mmol/L 01/09/20 13:41 BUN 5 mg/dL (7-17) L 01/09/20 13:41 Creatinine 0.5 mg/dL (0.7-1.2) L 01/09/20 13:41 Estimated GFR > 60 ml/min 01/09/20 13:41 BUN/Creatinine Ratio 10 % 01/09/20 13:41 Glucose 99 mg/dL (65-100) 01/09/20 13:41 Calcium 8.9 mg/dL (8.4-10.2) 01/09/20 13:41 Ferritin 381.2 ng/mL (13.0-400.0) 01/09/20 14:59 Total Bilirubin 0.50 mg/dL (0.1-1.2) 01/09/20 13:41 AST 83 units/L (5-40) H 01/09/20 13:41 ALT 60 units/L (7-56) H 01/09/20 13:41 Alkaline Phosphatase 68 units/L (35-129) 01/09/20 13:41 Lactate Dehydrogenase 370 units/L (91-180) H 01/09/20 14:59 C-Reactive Protein 1.10 mg/dL (0.00-1.30) 01/09/20 14:59 Total Protein 7.0 g/dL (6.3-8.2) 01/09/20 13:41 Albumin 4.1 g/dL (3.9-5) 01/09/20 13:41 Albumin/Globulin Ratio 1.4 % 01/09/20 13:41 Urine HCG, Qual Negative (Negative) 01/09/20 12:56 Influenza A (Rapid) Negative (Negative) 01/09/20 Unknown Influenza B (Rapid) Negative (Negative) 01/09/20 Unknown Short CBC 01/09/20 Range/Units 13:41 WBC 3.5 L (4.5-11.0) K/mm3 Hgb 12.2 (10.1-14.3) gm/dl Hct 37.8 (30.3-42.9) % Plt Count 189 (140-440) K/mm3 BMP 01/09/20 13:41 Sodium 139 Potassium 4.2 Chloride 102.9 Carbon Dioxide 26 BUN 5 L Creatinine 0.5 L Glucose 99 Calcium 8.9 Liver Function 01/09/20 Range/Units 13:41 Total Bilirubin 0.50 (0.1-1.2) mg/dL AST 83 H (5-40) units/L ALT 60 H (7-56) units/L Alkaline Phosphatase 68 (35-129) units/L Albumin 4.1 (3.9-5) g/dL - Imaging and Cardiology Chest x-ray: report reviewed Imaging and Cardiology: Chest x-ray IMPRESSION: Negative expiratory chest x-ray. Assessment and Plan Advance Directives: Yes (Full code) VTE prophylaxis?: Chemical Plan of care discussed with patient/family: Yes - Patient Problems (1) Acute respiratory failure with hypoxia Current Visit: Yes Status: Acute Plan to address problem: Patient is desaturating after walking a few steps Has cough and shortness of breath for 3 to 4 days. Possible coronavirus. D-dimer is very high in 4065.94 LDH is high at 370 Ferritin and CRP are normal Procalcitonin is pending No lymphopenia Patient initiated on IV ceftriaxone and hydroxychloroquine as per protocol. (2) Suspected 2019 novel coronavirus infection Current Visit: Yes Status: Acute Plan to address problem: Work-up for rule out coronavirus infection initiated Patient also started on IV ceftriaxone and chloroquine as per protocol D-dimer is very high Discussed with ID by VEE Melissa and Lovenox 40 mg subcu daily was started CT chest was ordered (3) Transaminitis Current Visit: Yes Status: Acute Plan to address problem: May be secondary to viral infection Acute hepatitis profile ordered (4) HTN (hypertension) Current Visit: No Status: Acute Qualifiers: Hypertension type: unspecified Qualified Code(s): I10 - Essential (primary) hypertension Plan to address problem: Secondary to -induced Not now Urinary hCG is negative No necessity for antihypertensives We will trend the blood pressure and if necessary start her on antihypertensives (5) DVT prophylaxis Current Visit: Yes Status: Acute Plan to address problem: On Lovenox 40 mg subcu daily and GI prophylaxis
[2020-01-09] MEDS ORDERED: NIFEdipine XL 60 MG TAB PO SCH (21:00)
[2020-01-09] MEDS ORDERED: cefTRIAXone/NS 2 GM/100 ML 2 GM/100 ML BAG IV SCH (21:00)
[2020-01-09] MEDS ORDERED: ENOXAPARIN 40 MG/0.4 ML INJ SUB-Q SCH (22:00)
[2020-01-09 22:27] LABS: Hepatitis B Surface Antigen Non-Reactive (Negative); Hepatitis C Virus Antibody Non-Reactive (NonReactive)
[2020-01-09] MEDS: HYDROXYCHLOROQUINE 200 MG TAB PO SCH (22:31)
[2020-01-09] MEDS: FERROUS SULFATE 325 MG TAB PO SCH (22:31)
[2020-01-09] MEDS: FAMOTIDINE 20 MG TAB PO SCH (22:32)
--- NOTE | 2020-01-09 23:23 | Cat Scan Report ---
CT CHEST WITH CONTRAST INDICATION / CLINICAL INFORMATION: MAIN: hypoxia, R/o coronavirus 100CC OMNI 300. COVID-19 Status: Uncertain TECHNIQUE: Axial CT images were obtained through the chest after 100 mL Omnipaque [address] scans at this location are performed using CT dose reduction for ALARA by means of automated exposure contr ol. COMPARISON: None available. FINDINGS: HEART: No significant abnormality. THORACIC AORTA: No significant abnormality. MEDIASTINUM and NENA: No significant abnormality. LUNGS: Mild, patchy bibasilar densities are nonspecific. No definite groundglass opacities. PLEURA: No significant pleural effusion. No pneumothorax. ADDITIONAL FINDINGS: None. UPPER ABDOMEN: No significant abnormality. SKELETAL SYSTEM: No significant abnormality. IMPRESSION: 1. Patchy bibasilar densities are nonspecific could represent atelectasis versus early infiltrate. No groundglass opacities. Signer Name: Joanie Heaton MD Signed: 01/09/2020 11:18 PM Workstation Name: [id number]
[2020-01-10] MEDS: HYDROXYCHLOROQUINE 200 MG TAB PO SCH ×3 (00:16→09:53)
[2020-01-10 05:42] LABS: Hematocrit 36.5 % (30.3-42.9); Mean Corpuscular HGB Conc 33 % (30-34); Mean Corpuscular Volume 87 fl (79-97); Platelet Count 213 K/mm3 (140-440)
[2020-01-10 06:05] LABS: Alanine Aminotransferase 62 units/L (7-56); Albumin 3.9 g/dL (3.9-5); BUN/Creatinine Ratio 12; Blood Urea Nitrogen 6 mg/dL (7-17); Calcium 8.7 mg/dL (8.4-10.2); Hemolysis Index 5
[2020-01-10 07:03] LABS: Band Neutrophils # (Manual) 0.2 K/mm3; Basophils % (Manual) 0 % (0.0-1.8); Total Cells Counted 100
[2020-01-10 07:04] LABS: Burr Cells Rare; Ovalocytes Rare; Platelet Estimate Consistent w Auto
--- NOTE | 2020-01-10 07:39 | Progress Note ---
Assessment and Plan Assessment and plan: 34-year-old female with history of -induced hypertension not on any blood pressure medications now comes in for cough and shortness of breath for the last 3 to 4 days. No chest pain or fever. Patient has been desaturating to high 80s on walking about 15-20 steps hence being admitted for rule out coronavirus infection. And also empiric treatment. 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 She is in the frontline. CT chest: IMPRESSION: 1. Patchy bibasilar densities are nonspecific could represent atelectasis versus early infiltrate. No groundglass opacities. Acute hypoxemic respiratory failure Suspected COVID-19 viral infection Transaminitis Hypertension Elevated d-dimer Leukopenia Plan Patient with persistent exertional dyspnea. Ongoing for 3 to 4 days prior to presentation work-up ongoing to rule out COVID-19 in the meantime patient has been initiated on IV ceftriaxone and hydroxychloroquine Will monitor inflammatory markers every 48 hours. Pulmonary Consult Continue DVT prophylaxis. May adjust to a higher dose of Lovenox if there is concern for lower extremity DVT with elevated d-dimer Hepatitis panel is negative Urinary hCG is negative No necessity for antihypertensives We will trend the blood pressure and if necessary start her on antihypertensives ID consult noted History PUI?: Yes COVID19: Pending Hospitalist Physical - Constitutional Vitals: Temp Pulse Resp BP Pulse Ox 98.2 F 70 18 121/79 97 01/10/20 06:24 01/10/20 06:24 01/10/20 06:24 01/10/20 06:24 01/10/20 06:24 General appearance: Present: no acute distress, well-nourished Results - Labs CBC & Chem 7: 01/10/20 04:59 01/10/20 04:59 Labs: Laboratory Last Values WBC 3.9 K/mm3 (4.5-11.0) L 01/10/20 04:59 RBC 4.20 M/mm3 (3.65-5.03) 01/10/20 04:59 Hgb 12.0 gm/dl (10.1-14.3) 01/10/20 04:59 Hct 36.5 % (30.3-42.9) 01/10/20 04:59 MCV 87 fl (79-97) 01/10/20 04:59 MCH 29 pg (28-32) 01/10/20 04:59 MCHC 33 % (30-34) 01/10/20 04:59 RDW 13.0 % (13.2-15.2) L 01/10/20 04:59 Plt Count 213 K/mm3 (140-440) 01/10/20 04:59 Lymph % (Auto) 40.5 % (13.4-35.0) H 01/09/20 13:41 [place] % (Auto) 10.2 % (0.0-7.3) H 01/09/20 13:41 Eos % (Auto) 0.4 % (0.0-4.3) 01/09/20 13:41 Baso % (Auto) 0.5 % (0.0-1.8) 01/09/20 13:41 Lymph # 1.4 K/mm3 (1.2-5.4) 01/09/20 13:41 [place] # 0.4 K/mm3 (0.0-0.8) 01/09/20 13:41 Eos # 0.0 K/mm3 (0.0-0.4) 01/09/20 13:41 Baso # 0.0 K/mm3 (0.0-0.1) 01/09/20 13:41 Add Manual Diff Complete 01/10/20 04:59 Total Counted 100 01/10/20 04:59 Seg Neutrophils % [place] 01/10/20 04:59 Seg Neuts % (Manual) 30.0 % (40.0-70.0) L 01/10/20 04:59 Band Neutrophils % 5.0 % 01/10/20 04:59 Lymphocytes % (Manual) 57.0 % (13.4-35.0) H 01/10/20 04:59 Reactive Lymphs % (Man) 0 % 01/10/20 04:59 Monocytes % (Manual) 7.0 % (0.0-7.3) 01/10/20 04:59 Eosinophils % (Manual) 1.0 % (0.0-4.3) 01/10/20 04:59 Basophils % (Manual) 0 % (0.0-1.8) 01/10/20 04:59 Metamyelocytes % 0 % 01/10/20 04:59 Myelocytes % 0 % 01/10/20 04:59 Promyelocytes % 0 % 01/10/20 04:59 Blast Cells % 0 % 01/10/20 04:59 Nucleated RBC % Not Reportable 01/10/20 04:59 Seg Neutrophils # 1.7 K/mm3 (1.8-7.7) L 01/09/20 13:41 Seg Neutrophils # Man 1.2 K/mm3 (1.8-7.7) L 01/10/20 04:59 Band Neutrophils # 0.2 K/mm3 01/10/20 04:59 Lymphocytes # (Manual) 2.2 K/mm3 (1.2-5.4) 01/10/20 04:59 Abs React Lymphs (Man) 0.0 K/mm3 01/10/20 04:59 Monocytes # (Manual) 0.3 K/mm3 (0.0-0.8) 01/10/20 04:59 Eosinophils # (Manual) 0.0 K/mm3 (0.0-0.4) 01/10/20 04:59 Basophils # (Manual) 0.0 K/mm3 (0.0-0.1) 01/10/20 04:59 Metamyelocytes # 0.0 K/mm3 01/10/20 04:59 Myelocytes # 0.0 K/mm3 01/10/20 04:59 Promyelocytes # 0.0 K/mm3 01/10/20 04:59 Blast Cells # 0.0 K/mm3 01/10/20 04:59 WBC Morphology Not Reportable 01/10/20 04:59 Hypersegmented Neuts Not Reportable 01/10/20 04:59 Hyposegmented Neuts Not Reportable 01/10/20 04:59 Hypogranular Neuts Not Reportable 01/10/20 04:59 Smudge Cells Not Reportable 01/10/20 04:59 Toxic Granulation Not Reportable 01/10/20 04:59 Toxic Vacuolation Not Reportable 01/10/20 04:59 Dohle Bodies Not Reportable 01/10/20 04:59 Pelger-Huet Anomaly Not Reportable 01/10/20 04:59 Corine Rods Not Reportable 01/10/20 04:59 Platelet Estimate Consistent w auto 01/10/20 04:59 Clumped Platelets Not Reportable 01/10/20 04:59 Plt Clumps, EDTA Not Reportable 01/10/20 04:59 Large Platelets Not Reportable 01/10/20 04:59 Giant Platelets Not Reportable 01/10/20 04:59 Platelet Satelliting Not Reportable 01/10/20 04:59 Plt Morphology Comment Not Reportable 01/10/20 04:59 RBC Morphology Not Reportable 01/10/20 04:59 Dimorphic RBCs Not Reportable 01/10/20 04:59 Polychromasia Not Reportable 01/10/20 04:59 Hypochromasia Not Reportable 01/10/20 04:59 Poikilocytosis Not Reportable 01/10/20 04:59 Anisocytosis Not Reportable 01/10/20 04:59 Microcytosis Not Reportable 01/10/20 04:59 Macrocytosis Not Reportable 01/10/20 04:59 Spherocytes Not Reportable 01/10/20 04:59 Pappenheimer Bodies Not Reportable 01/10/20 04:59 Sickle Cells Not Reportable 01/10/20 04:59 Target Cells Not Reportable 01/10/20 04:59 Tear Drop Cells Not Reportable 01/10/20 04:59 Ovalocytes Rare 01/10/20 04:59 Helmet Cells Not Reportable 01/10/20 04:59 [place] Bodies Not Reportable 01/10/20 04:59 [place] Rings Not Reportable 01/10/20 04:59 Colt Cells Rare 01/10/20 04:59 Bite Cells Not Reportable 01/10/20 04:59 Crenated Cell Not Reportable 01/10/20 04:59 Elliptocytes Not Reportable 01/10/20 04:59 Acanthocytes (Spur) Not Reportable 01/10/20 04:59 Rouleaux Not Reportable 01/10/20 04:59 Hemoglobin C Crystals Not Reportable 01/10/20 04:59 Schistocytes Not Reportable 01/10/20 04:59 Malaria parasites Not Reportable 01/10/20 04:59 Riky Bodies Not Reportable 01/10/20 04:59 Hem Pathologist Commnt No 01/10/20 04:59 D-Dimer 4065.94 ng/mlDDU (0-234) H 01/09/20 14:59 Sodium 140 mmol/L (137-145) 01/10/20 04:59 Potassium 3.8 mmol/L (3.6-5.0) 01/10/20 04:59 Chloride 102.0 mmol/L (98-107) 01/10/20 04:59 Carbon Dioxide 21 mmol/L (22-30) L 01/10/20 04:59 Anion Gap 21 mmol/L 01/10/20 04:59 BUN 6 mg/dL (7-17) L 01/10/20 04:59 Creatinine 0.5 mg/dL (0.7-1.2) L 01/10/20 04:59 Estimated GFR > 60 ml/min 01/10/20 04:59 BUN/Creatinine Ratio 12 % 01/10/20 04:59 Glucose 96 mg/dL (65-100) 01/10/20 04:59 Calcium 8.7 mg/dL (8.4-10.2) 01/10/20 04:59 Ferritin 381.2 ng/mL (13.0-400.0) 01/09/20 14:59 Total Bilirubin 0.30 mg/dL (0.1-1.2) 01/10/20 04:59 AST 60 units/L (5-40) H 01/10/20 04:59 ALT 62 units/L (7-56) H 01/10/20 04:59 Alkaline Phosphatase 64 units/L (35-129) 01/10/20 04:59 Lactate Dehydrogenase 370 units/L (91-180) H 01/09/20 14:59 C-Reactive Protein 1.10 mg/dL (0.00-1.30) 01/09/20 14:59 Total Protein 7.6 g/dL (6.3-8.2) 01/10/20 04:59 Albumin 3.9 g/dL (3.9-5) 01/10/20 04:59 Albumin/Globulin Ratio 1.1 % 01/10/20 04:59 Urine HCG, Qual Negative (Negative) 01/09/20 12:56 Hepatitis A IgM Ab Non-reactive (NonReactive) 01/09/20 21:35 Hep Bs Antigen Non-reactive (Negative) 01/09/20 21:35 Hep B Core IgM Ab Non-reactive (NonReactive) 01/09/20 21:35 Hepatitis C Antibody Non-reactive (NonReactive) 01/09/20 21:35 Influenza A (Rapid) Negative (Negative) 01/09/20 Unknown Influenza B (Rapid) Negative (Negative) 01/09/20 Unknown Cassidy/IV: IV Catheter Type [Left INT / Saline Lock Antecubital] Active Medications - Current Medications Current Medications: Generic Name Dose Route Start Last Admin Trade Name Freq PRN Reason Stop Dose Admin Acetaminophen 650 mg 01/09/20 20:24 Tylenol PO Q4H PRN Pain MILD(1-3)/Fever >100.5/[place] Enoxaparin Sodium 40 mg 01/09/20 22:00 01/09/20 22:31 Enoxaparin SUB-Q 40 mg QDAY@2200 VERO Administration Famotidine 20 mg 01/09/20 22:00 01/09/20 22:32 Pepcid PO 20 mg BID VERO Administration Ferrous Sulfate 325 mg 01/09/20 22:00 01/09/20 22:31 Feosol PO 325 mg BID VERO Administration Hydroxychloroquine Sulfate 400 mg 01/09/20 21:00 01/10/20 00:39 Plaquenil PO 01/10/20 09:01 400 mg Q12H VERO Administration Hydroxychloroquine Sulfate 200 mg 01/10/20 22:00 Plaquenil PO 01/14/20 10:01 Q12HR [facility] Ceftriaxone Sodium 2 gm in 100 mls @ 200 mls/hr 01/09/20 21:00 01/09/20 22:32 Rocephin/Ns 2 Gm/100 Ml IV 200 mls/hr Q24H VERO Administration Protocol Morphine Sulfate 2 mg 01/09/20 20:24 Morphine IV Q4H PRN Pain, Moderate (4-6) Multivitamins/Iron/Calcium 1 each 01/10/20 10:00 Vitamin PO DAILY [facility] Ondansetron HCl 4 mg 01/09/20 20:24 Zofran IV Q8H PRN Nausea And Vomiting Oxycodone/Acetaminophen 1 tab 01/09/20 20:24 Percocet 5/325 PO Q6H PRN Pain, Moderate (4-6) Sodium Chloride 10 ml 01/09/20 22:00 01/09/20 22:32 Sodium Chloride Flush Syringe 10 Ml IV 10 ml BID VERO Administration Sodium Chloride 10 ml 01/09/20 20:24 Sodium Chloride Flush Syringe 10 Ml IV PRN PRN LINE FLUSH
[2020-01-10] MEDS: FAMOTIDINE 20 MG TAB PO SCH (09:52)
[2020-01-10] MEDS: FERROUS SULFATE 325 MG TAB PO SCH (09:52)
[2020-01-10] MEDS ORDERED: [UNRECOGNIZED DRUG - REMARK] PO SCH (10:00)
[2020-01-10] MEDS ORDERED: PRENATAL VIT27-FE FUMARATE-FOLIC ACID VIT TAB PO SCH (10:00)
--- NOTE | 2020-01-10 11:21 | Discharge Summary ---
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 No chest pain or fever. Patient has been desaturating to high 80s on walking about 15-20 steps hence being admitted for rule out coronavirus infection. And also empiric treatment. 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 CT chest: IMPRESSION: 1. Patchy bibasilar densities are nonspecific could represent atelectasis versus early infiltrate. No groundglass opacities. patient is clinically improved this morning oxygen saturations significantly improved with 95% on ambulation on room air. She is stable to go home she will continue her Plaquenil until we get the results of her COVID-19 she is also to follow with COVID-19 precautions while on discharge. I recommended that she follows up with primary care physician she verbalized understanding we will give her information to the community clinics. I also recommended a pulmonary follow-up outpatient for sleep study and weight loss counseling was provided. Imaging findings were discussed in detail with the patient. I also recommended that primary care physician evaluate her back as she has chronic back pain Acute hypoxemic respiratory failure Suspected COVID-19 viral infection Transaminitis Hypertension Elevated d-dimer Morbidly obese Leukopenia Chronic back pain ongoing for more than 1 year Disposition: - TO HOME OR SELFCARE Time spent for discharge: 35 minutes Core Measure Documentation - Palliative Care Palliative Care/ Comfort Measures: Not Applicable - Core Measures Any of the following diagnoses?: none Exam - Physical Exam Narrative exam: VITAL SIGNS: Reviewed. GENERAL: The patient appears normally developed, morbidly obese vital signs as documented. HEAD: No signs of head trauma. EYES: Pupils are equal. Extraocular motions intact. EARS: Hearing grossly intact. MOUTH: Oropharynx is normal. NECK: No adenopathy, no JVD. CHEST: Chest with diminished breath sounds bilaterally. No wheezes, rales, or rhonchi. CARDIAC: Regular rate and rhythm. S1 and S2, without murmurs, gallops, or rubs. VASCULAR: No Edema. Peripheral pulses normal and equal in all extremities. ABDOMEN: Soft, non tender and non distended. No rebound or guarding, and no masses palpated. Bowel Sounds normal. MUSCULOSKELETAL: Good range of motion of all major joints. Extremities without clubbing, cyanosis or edema. NEUROLOGIC EXAM: Alert and oriented x 3 No focal sensory or strength deficits. Speech normal. Follows commands. PSYCHIATRIC: Mood normal. SKIN: detial exam as documented in skin assessment - Constitutional Vitals: Temp Pulse Resp BP Pulse Ox 98.2 F 70 18 121/79 97 01/10/20 06:24 01/10/20 06:24 01/10/20 06:24 01/10/20 06:24 01/10/20 10:00 Plan Activity: advance as tolerated, fall precautions Diet: low fat Special Instructions: record daily weights (Weight loss recommended), record daily BP diary Additional Instructions: Must self quaratine at home unless the test result for Covid 19 (Coronavirus) comes back negative then you can stop the self quaratine. If you must leave home, you are required to wear a Mask at all times. When at home to prevent Infecting family members you must wear a MASK Follow up with: PRIMARY CARLOS, [Primary Care Provider] - 3-5 Days CHRISTY MOSLEY MD [Staff Physician] - 7 Days [facility] [Provider Group] - 7 Days Forms: Work/School Release Form Prescriptions: Hydroxychloroquine [Plaquenil] 200 mg PO Q12HR #8 tablet
[2020-01-10 13:26] VITALS: BP 117/80
--- NOTE | 2020-01-10 14:37 | Consultation ---
History of Present Illness - Reason for Consult Consult date: 01/10/20 COVID-19 rule out Requesting physician: EFRAIN FRAIRE?: Yes COVID19: Pending - History of Present Illness The patient is a 34-year-old female with morbid obesity admitted to the hospital with complaints of cough and shortness of breath for 3 to 4 days prior to admission. She was found to have desaturations on exertion while in the emergency room and hence hospitalized. CT chest showed bibasilar opacities. Otherwise she has been afebrile here. Review of Systems: reviewed in the chart, unable to obtain directly due to PPE shortage and preservation Medications and Allergies Allergies Allergy/AdvReac Type Severity Reaction Status Date / Time No Known Allergies Allergy Verified 11/28/18 12:16 Home Medications Medication Instructions Recorded Confirmed Last Taken Type Ferrous Sulfate [Feosol 325 MG tab] 325 mg PO BID #60 tablet 11/28/18 Unknown Rx Ibuprofen [Motrin 800 MG tab] 800 mg PO Q8HR PRN #30 tablet 11/28/18 Unknown Rx Hydroxychloroquine [Plaquenil] 200 mg PO Q12HR #8 tablet 01/10/20 Unknown Rx Active Meds: Active Medications Acetaminophen (Tylenol) 650 mg PO Q4H PRN PRN Reason: Pain MILD(1-3)/Fever >100.5/[place] Enoxaparin Sodium (Enoxaparin) 40 mg SUB-Q QDAY@2200 [facility] Last Admin: 01/09/20 22:31 Dose: 40 mg Documented by: Famotidine (Pepcid) 20 mg PO BID [facility] Last Admin: 01/10/20 09:52 Dose: 20 mg Documented by: Ferrous Sulfate (Feosol) 325 mg PO BID [facility] Last Admin: 01/10/20 09:52 Dose: 325 mg Documented by: Hydroxychloroquine Sulfate (Plaquenil) 200 mg PO Q12HR [facility] Stop: 01/14/20 10:01 Ceftriaxone Sodium (Rocephin/Ns 2 Gm/100 Ml) 2 gm in 100 mls @ 200 mls/hr IV Q24H [facility]; Protocol Last Admin: 01/09/20 22:32 Dose: 200 mls/hr Documented by: Multivitamins/Iron/Calcium ( Vitamin) 1 each PO DAILY [facility] Last Admin: 01/10/20 09:53 Dose: 1 each Documented by: Ondansetron HCl (Zofran) 4 mg IV Q8H PRN PRN Reason: Nausea And Vomiting Sodium Chloride (Sodium Chloride Flush Syringe 10 Ml) 10 ml IV BID VERO Last Admin: 01/10/20 09:53 Dose: 10 ml Documented by: Sodium Chloride (Sodium Chloride Flush Syringe 10 Ml) 10 ml IV PRN PRN PRN Reason: LINE FLUSH Physical Examination - Physical Exam Narrative exam: Physical Exam (reviewed in chart due to PPE conservation) Constitutional: limited due to PPE conservation strategy Head, Ears, Nose: limited due to PPE conservation strategy Eyes: limited due to PPE conservation strategy Neck: limited due to PPE conservation strategy Oral: limited due to PPE conservation strategy Cardiovascular: limited due to PPE conservation strategy Respiratory: limited due to PPE conservation strategy GI: limited due to PPE conservation strategy Musculoskeletal: limited due to PPE conservation strategy Skin: limited due to PPE conservation strategy Hem/Lymphatic: limited due to PPE conservation strategy Psych: limited due to PPE conservation strategy Neurological: limited due to PPE conservation strategy - Constitutional Vitals: Vital Signs Temp Pulse Resp BP Pulse Ox 97.6 F 67 19 117/80 97 01/10/20 11:57 01/10/20 11:57 01/10/20 11:57 01/10/20 11:57 01/10/20 11:57 Temperature -Last 24 Hours Temperature 97.6 F Temperature 98.2 F Temperature 98.7 F Temperature 98.0 F Results - Labs CBC & Chem 7: 01/10/20 04:59 01/10/20 04:59 Labs: Abnormal lab results 01/09/20 01/09/20 01/10/20 Range/Units 14:59 14:59 04:59 WBC 3.9 L (4.5-11.0) K/mm3 RDW 13.0 L (13.2-15.2) % Seg Neuts % (Manual) 30.0 L (40.0-70.0) % Lymphocytes % (Manual) 57.0 H (13.4-35.0) % Seg Neutrophils # Man 1.2 L (1.8-7.7) K/mm3 D-Dimer 4065.94 H (0-234) ng/mlDDU Carbon Dioxide (22-30) mmol/L BUN (7-17) mg/dL Creatinine (0.7-1.2) mg/dL AST (5-40) units/L ALT (7-56) units/L Lactate Dehydrogenase 370 H (91-180) units/L // Range/Units 04:59 WBC (4.5-11.0) K/mm3 RDW (13.2-15.2) % Seg Neuts % (Manual) (40.0-70.0) % Lymphocytes % (Manual) (13.4-35.0) % Seg Neutrophils # Man (1.8-7.7) K/mm3 D-Dimer (0-234) ng/mlDDU Carbon Dioxide 21 L (22-30) mmol/L BUN 6 L (7-17) mg/dL Creatinine 0.5 L (0.7-1.2) mg/dL AST 60 H (5-40) units/L ALT 62 H (7-56) units/L Lactate Dehydrogenase (91-180) units/L - Imaging and Cardiology CT scan - chest: report reviewed, image reviewed (bibasilar infiltrates/opacities) Assessment and Plan Cultures: None this admission A/P: 34-year-old female with morbid obesity: #Bilateral pneumonia, suspect viral etiology, agree with COVID-19 rule out: markers not significantly elevated. Leucopenia likely related to this. #Elevated LFTs, possibly related to COVID #Morbid Obesity Recs: Okay for discharge from ID standpoint. No abx needed John Bartlett MD, FACP [facility] C: [phone] O: [phone] F: [phone]
[2020-01-10] MEDS ORDERED: HYDROXYCHLOROQUINE 200 MG TAB PO SCH (22:00)
== END 2020-01-10 14:30 | disposition home or self-care (01) | DRG 177 ==
LOC: ED 12:27 → 3A 18:36
PROVIDERS: ADMIT Internal Medicine; ATTEND Internal Medicine
DX: U07.1 COVID-19 (principal); J96.01 Acute respiratory failure with hypoxia; Z68.43 Body mass index [BMI] 50.0-59.9, adult; R74.0 Nonspecific elevation of levels of transaminase and lactic acid dehydrogenase [LDH]; I10 Essential (primary) hypertension; G89.29 Other chronic pain; M54.9 Dorsalgia, unspecified; D72.819 Decreased white blood cell count, unspecified; E66.01 Morbid (severe) obesity due to excess calories; Z20.818 Contact with and (suspected) exposure to other bacterial communicable diseases; Z90.49 Acquired absence of other specified parts of digestive tract; Z82.49 Family history of ischemic heart disease and other diseases of the circulatory system
CPT/HCPCS: 36415; 71046; 71260; 80053; 80074; 81025; 82728; 83615; 84145; 85007; 85025; 85379; 86140; 87400; G0378; J0696; J1650; J7030; Q9967

== ENCOUNTER 2021-06-26 02:04 | Emergency (ER) | payer BC, OTHER ==
[2021-06-26 03:39] VITALS: BP 144/97
[2021-06-26] MEDS ORDERED: oxyCODONE /ACETAMINOPHEN 5-325MG TAB PO ONE (03:51)
[2021-06-26] MEDS ORDERED: ONDANSETRON 4 MG ODT TAB PO ONE (03:51)
[2021-06-26] MEDS ORDERED: KETOROLAC 30 MG/1 ML INJ IM ONE (03:51)
[2021-06-26] MEDS ORDERED: dexAMETHasone 20 MG/5 ML VIAL IM ONE (03:51)
--- NOTE | 2021-06-26 05:16 | Emergency Department Report ---
ED Back Pain/Injury HPI - General Chief Complaint: Back Pain/Injury Stated Complaint: LOWER BACK PAIN Source: patient Limitations: No Limitations - History of Present Illness Initial Comments: Patient is a 36-year-old -[place] female with a history of preeclampsia and chronic low back pain with bilateral sciatica who presented to the ED with complaint of acute exacerbation of her chronic low back pain that radiates to the lower extremities bilaterally for the last 1 week. Patient states that the pain is persistent, constant and especially worse with upright posture or movement. Patient states that her low back pain began after she had an epidural procedure about a year ago. Patient states that the pain has been intermittent with occasional worsening symptoms especially after exertion or being upright at work. Patient states that she has been taking ibuprofen at home with no relief. Patient denies fall, traumatic injury, nausea and vomiting, chest pain, shortness of breath, dysuria, urinary frequency and urgency, hematuria, vaginal bleeding, vaginal discharge or heavy lifting. MD Complaint: back pain, other (Diffuse low back pain that radiates to the lower extremities bilaterally) -: Gradual, year(s) (1) Similar Symptoms Previously: Yes (Chronic) Place: home Radiation: left leg, right leg Severity: severe Severity scale (0 -10): 8 Quality: sharp, aching Consistency: constant Improves With: none Worsens With: movement, sitting upright, walking Context: while lifting, turning/twisting, other (Previous history of epidural procedure resulting in low back pain) Associated Symptoms: denies other symptoms. denies: confusion, weakness, chest pain, numbness, difficulty walking, cough, difficulty urinating, diaphoresis, incontinence, constipation, headaches, loss of appetite, malaise, nausea/vomiting, seizure, shortness of breath, other Treatments Prior to Arrival: acetaminophen - Related Data Previous Rx's Medication Instructions Recorded Last Taken Type Ferrous Sulfate [Feosol 325 MG tab] 325 mg PO BID #60 tablet 11/28/18 Unknown Rx Ibuprofen [Motrin 800 MG tab] 800 mg PO Q8HR PRN #30 tablet 11/28/18 Unknown Rx Hydroxychloroquine [Plaquenil] 200 mg PO Q12HR #8 tablet 01/10/20 Unknown Rx Ibuprofen [Motrin] 600 mg PO Q8H PRN #60 tablet 09/26/20 Unknown Rx oxyCODONE /ACETAMINOPHEN [Percocet 1 tab PO Q6HR PRN #20 tablet 09/26/20 Unknown Rx 5/325] amLODIPine 10 mg PO DAILY #30 tab 09/29/20 Unknown Rx hydroCHLOROthiazide [HCTZ] 25 mg PO QDAY #30 tablet 09/29/20 Unknown Rx labetaloL [Labetalol 200mg TAB] 200 mg PO Q8H #90 tablet 09/29/20 Unknown Rx Baclofen 20 mg PO Q12H PRN #30 tablet 06/26/21 Unknown Rx Gabapentin 300 mg PO Q12H PRN #60 cap 06/26/21 Unknown Rx Ibuprofen [Motrin] 800 mg PO Q8HR PRN #30 tablet 06/26/21 Unknown Rx Prednisone [predniSONE 10 mg 10 mg PO .TAPER #21 tab.ds.pk 06/26/21 Unknown Rx (6-Day Pack, 21 Tabs)] traMADoL [Ultram] 50 mg PO Q6HR PRN #12 tablet 06/26/21 Unknown Rx Allergies Allergy/AdvReac Type Severity Reaction Status Date / Time No Known Allergies Allergy Verified 11/28/18 12:16 ED Review of Systems ROS: Stated complaint: LOWER BACK PAIN Other details as noted in HPI Constitutional: denies: chills, fever Eyes: denies: eye pain, eye discharge, vision change ENT: denies: ear pain, throat pain Respiratory: denies: cough, shortness of breath, wheezing Cardiovascular: denies: chest pain, palpitations Endocrine: no symptoms reported Gastrointestinal: denies: abdominal pain, nausea, diarrhea Genitourinary: denies: urgency, dysuria, discharge Musculoskeletal: back pain (Low back pain), arthralgia (Bilateral leg pain). denies: joint swelling Skin: denies: rash, lesions Neurological: denies: headache, weakness, paresthesias Psychiatric: denies: anxiety, depression Hematological/Lymphatic: denies: easy bleeding, easy bruising ED Past Medical Hx - Past Medical History Hx Hypertension: Yes (this ) Hx Heart Attack/AMI: No Hx Congestive Heart Failure: No Hx Diabetes: No Hx Deep Vein Thrombosis: No Hx Renal Disease: No Hx Sickle Cell Disease: No Hx Seizures: No Hx Asthma: No Hx COPD: No Hx HIV: No - Surgical History Hx Cholecystectomy: Yes Additional Surgical History: c- section 2007 - Social History Smoking Status: Never Smoker - Medications Home Medications: Home Medications Medication Instructions Recorded Confirmed Last Taken Type Ferrous Sulfate [Feosol 325 MG tab] 325 mg PO BID #60 tablet 11/28/18 09/28/20 Unknown Rx Ibuprofen [Motrin 800 MG tab] 800 mg PO Q8HR PRN #30 tablet 11/28/18 09/28/20 Unknown Rx Hydroxychloroquine [Plaquenil] 200 mg PO Q12HR #8 tablet 01/10/20 09/28/20 Unknown Rx Ibuprofen [Motrin] 600 mg PO Q8H PRN #60 tablet 09/26/20 Unknown Rx oxyCODONE /ACETAMINOPHEN [Percocet 1 tab PO Q6HR PRN #20 tablet 09/26/20 Unknown Rx 5/325] amLODIPine 10 mg PO DAILY #30 tab 09/29/20 Unknown Rx hydroCHLOROthiazide [HCTZ] 25 mg PO QDAY #30 tablet 09/29/20 Unknown Rx labetaloL [Labetalol 200mg TAB] 200 mg PO Q8H #90 tablet 09/29/20 Unknown Rx Baclofen 20 mg PO Q12H PRN #30 tablet 06/26/21 Unknown Rx Gabapentin 300 mg PO Q12H PRN #60 cap 06/26/21 Unknown Rx Ibuprofen [Motrin] 800 mg PO Q8HR PRN #30 tablet 06/26/21 Unknown Rx Prednisone [predniSONE 10 mg 10 mg PO .TAPER #21 tab.ds.pk 06/26/21 Unknown Rx (6-Day Pack, 21 Tabs)] traMADoL [Ultram] 50 mg PO Q6HR PRN #12 tablet 06/26/21 Unknown Rx ED Physical Exam - General Limitations: No Limitations General appearance: alert, in no apparent distress - Head Head exam: Present: atraumatic, normocephalic, normal inspection - Eye Eye exam: Present: normal appearance, PERRL, EOMI Pupils: Present: normal accommodation - ENT ENT exam: Present: normal exam, normal orophraynx, mucous membranes moist, TM's normal bilaterally, normal external ear exam - Neck Neck exam: Present: normal inspection, full ROM - Respiratory Respiratory exam: Present: normal lung sounds bilaterally. Absent: respiratory distress, wheezes, rales, stridor, chest wall tenderness, accessory muscle use, decreased breath sounds - Cardiovascular Cardiovascular Exam: Present: regular rate, normal rhythm, normal heart sounds. Absent: systolic murmur, diastolic murmur, rubs, gallop - GI/Abdominal GI/Abdominal exam: Present: soft, normal bowel sounds. Absent: tenderness, guarding, hyperactive bowel sounds, hypoactive bowel sounds - Extremities Exam Extremities exam: Present: normal inspection, full ROM, normal capillary refill - Back Exam Back exam: Present: normal inspection, full ROM, tenderness (Palpable lumbosacral paraspinal musculoskeletal tenderness; no midline tenderness), muscle spasm, paraspinal tenderness. Absent: CVA tenderness (R), CVA tenderness (L), vertebral tenderness - Neurological Exam Neurological exam: Present: alert, oriented X3, CN II-XII intact, normal gait, reflexes normal - Psychiatric Psychiatric exam: Present: normal affect, normal mood - Skin Skin exam: Present: warm, dry, intact, normal color. Absent: rash ED Course Vital Signs 06/26/21 03:33 Temperature 97.9 F Pulse Rate 75 Respiratory 16 Rate Blood Pressure 144/97 O2 Sat by Pulse 96 Oximetry ED Medical Decision Making - Medical Decision Making This is a 36-year-old -[place] female with no past medical history presents to the ED with complaint of acute onset persistent nontraumatic bilateral diffuse lower extremity pain with mild swelling for the last 1 week. Patient states that the pain has been persistent and worse in the last 2 days. Patient states that she just returned from a trip for a vacation in [place] about 1 week ago and states that the physical activities she was involving were not unusual. 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 In the ED, patient is alert and oriented x3 and is not in any distress. Patient was treated for pain in the ED and on reevaluation, patient's pain is well controlled medication. Patient will discharge home on pain medication and given a referral to neurosurgeon for further evaluation. Patient is advised return to the ED immediately if symptoms get worse. - Differential Diagnosis Chronic back pain; sciatica; muscle spasm; Critical care attestation.: If time is entered above; I have spent that time in minutes in the direct care of this critically ill patient, excluding procedure time. ED Disposition Clinical Impression: Spasm of muscle of lower back Chronic low back pain with sciatica Qualifiers: Back pain laterality: bilateral Sciatica laterality: bilateral sciatica Qualified Code(s): M54.42 - Lumbago with sciatica, left side; M54.41 - Lumbago with sciatica, right side; G89.29 - Other chronic pain Disposition: 01 HOME / SELF CARE / HOMELESS Is pt being admited?: No Does the pt Need Aspirin: No Condition: Stable Instructions: Muscle Cramps and Spasms, [id number], Chronic Back Pain, [id number], Sciatica Rehab-SportsMed Additional Instructions: Your symptoms are likely due to lumbar radiculopathy following epidural procedure. Therefore take medications with food, drink plenty of fluids and follow-up with your primary care physician in 7 to 10 days for reevaluation. Consider following up with a neurosurgeon Dr. Schulz for further evaluation. Contact the office of [facility] brain and spine surgeons to schedule a follow-up appointment. Return to the ED immediately if symptoms get worse. Prescriptions: Baclofen 20 mg PO Q12H PRN #30 tablet PRN Reason: Muscle Spasm Gabapentin 300 mg PO Q12H PRN #60 cap PRN Reason: neuropathy Ibuprofen [Motrin] 800 mg PO Q8HR PRN #30 tablet PRN Reason: Pain , Severe (7-10) Prednisone [predniSONE 10 mg (6-Day Pack, 21 Tabs)] 10 mg PO .TAPER #21 tab.ds.pk traMADoL [Ultram] 50 mg PO Q6HR PRN #12 tablet PRN Reason: Pain Referrals: LANI SCHULZ II, MD [Staff Physician] - 3-5 Days Forms: Work/School Release Form(ED) Time of Disposition: 05:17 Print Language: MALAY
== END 2021-06-26 05:57 | disposition home or self-care (01) ==
LOC: ED 02:04
DX: M62.830 Muscle spasm of back (principal); M54.41 Lumbago with sciatica, right side; Z90.49 Acquired absence of other specified parts of digestive tract
CPT/HCPCS: 96372; 99282; J1100; J1885; Q0162